=== PATIENT | male | born 1945 | race Caucasian/White ===

== ENCOUNTER 2017-03-23 20:35 | Inpatient (IN) | payer MEDICARE, OTHER ==
[2017-03-23] MEDS ORDERED: SODIUM CHLORIDE 0.9% 1,000 ML IV STA (20:41)
[2017-03-23] MEDS ORDERED: ACETAMINOPHEN TAB 500 MG TAB PO STA (20:42)
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
[2017-03-23 21:24] LABS: Anisocytosis Slight; Basophils % (A) 0 %; CH 26.2; CHCM 31.4; Eosinophils # (A) 0.3 k/uL (0-0.7); Eosinophils % (A) 4 %; HCT 32.1 % (39.0-53.0); HDW 2.89; HGB 9.9 gm/dL (13.0-17.5); Hypochromasia Slight; Luc # (Auto) 0.13; Luc % (Auto) 2; Lymphocytes # (A) 0.7 k/uL (1.0-4.8); Lymphocytes % (A) 8 %; MCH 25.8 pg (25.0-35.0); MCHC 30.8 g/dL (31.0-37.0); MCV 83.7 fL (80.0-100.0); Mean Platelet Volume 7.7; Monocytes # (A) 0.5 k/uL (0-1.0); Monocytes % (A) 5 %; Neutrophils # (A) 7.2 k/uL (1.3-7.7); Neutrophils % (A) 81 %; RBC 3.83 m/uL (4.30-5.90); WBC 8.8 k/uL (3.8-10.6); WBC (Perox) 8.42
[2017-03-23 21:33] LABS: Partial Thromboplastin Time 32.2 sec (22.0-30.0)
[2017-03-23 21:35] LABS: INR 1.4 (<1.2); Prothrombin Time 13.9 sec (9.0-12.0)
[2017-03-23 21:36] LABS: ALT 29 U/L (21-72); AST 13 U/L (17-59); Alkaline Phosphatase 74 U/L (38-126); Anion Gap 9 mmol/L; Blood Urea Nitrogen 11 mg/dL (9-20); Calcium 10.7 mg/dL (8.4-10.2); Carbon Dioxide 29 mmol/L (22-30); Chloride 98 mmol/L (98-107); Glucose 135 mg/dL (74-99); Magnesium 1.1 mg/dL (1.6-2.3); Non-African American GFR(MDRD) >60 (>60 ml/min/1.73 sqM); Potassium 3.8 mmol/L (3.5-5.1); Sodium 136 mmol/L (137-145); Total Bilirubin 0.3 mg/dL (0.2-1.3); Total Protein 6.1 g/dL (6.3-8.2)
[2017-03-23 21:43] LABS: Creatine Kinase <20 U/L (55-170)
[2017-03-23 21:57] LABS: Creatine Kinase MB 0.4 ng/mL (0.0-2.4); Troponin I <0.012 ng/mL (0.000-0.034)
--- NOTE | 2017-03-23 21:57 | CT ---
EXAMINATION TYPE: CT brain wo con DATE OF EXAM: 03/23/2017 HISTORY: Patient poor historian. Patient weak, poor balance, and recent fall. CT DLP: 1150 mGycm. Automated Exposure Control for Dose Reduction was Utilized. TECHNIQUE: CT scan of the head is performed without contrast. COMPARISON: None. FINDINGS: There is no acute intracranial hemorrhage or midline shift identified. Right frontal jenny hole is felt present near axial image 40 versus less likely enchondroma. Correlate clinically. There is diffuse ventricular and sulcal prominence consistent with diffuse age-related cerebral atrophy. There is low-attenuation in the periventricular white matter consistent with chronic small vessel isc hemic change. The globes are intact and the visualized sinuses are clear. IMPRESSION: No acute intracranial hemorrhage or midline shift. There is mild to moderate diffuse ag e-related cerebral atrophy and chronic small vessel ischemic change noted.
--- NOTE | 2017-03-23 22:03 | XR ---
EXAMINATION TYPE: XR chest 2V DATE OF EXAM: 03/23/2017 COMPARISON: Outside CT thorax December 11, 2016 HISTORY: Weakness and increased falls TECHNIQUE: Frontal and lateral views of the chest are obtained. FINDINGS: Sternal wires are redemonstrated. There is background chronic emphysematous change. There is persistent moderate to large left-sided pleural pleural effusion or fluid collection. Some aerated lung left lung apex remains present. There is stable right subclavian Mediport catheter. There is pe rsistent mild cardiomegaly though left heart border is silhouetted similar to prior. No mediastinal s hift is seen. Osseous structures are intact. IMPRESSION: Overall stable findings, chronic emphysematous change and mild cardiomegaly with persist ent moderate to large left-sided pleural effusion or fluid collection and associated left lung atelec tasis and/or infiltrate.
[2017-03-23 22:29] LABS: Appearance,Urine Clear (Clear); Bilirubin,Urine Negative (Negative); Glucose,Urine (UA) Negative (Negative); Ketones,Urine Negative (Negative); Leukocyte Esterase,Urine Negative (Negative); Mucus,Urine Occasional /hpf; Nitrite,Urine Negative (Negative); PH, Urine 5.5 (5.0-8.0); Particle Count 3267; Protein,Urine Trace (Negative); RBC,Urine 3 /hpf (0-5); UA Billing (MACRO vs. MICRO) MICRO; Urobilinogen,Urine <2.0 mg/dL (<2.0); WBC,Urine 1 /hpf (0-5)
[2017-03-23] MEDS: MAGNESIUM SULFATE-D5W PMX 1 GM in DEXTROSE/WATER 1 100ML.BAG IVPB SCH (22:43)
[2017-03-23] MEDS ORDERED: LEVOFLOXACIN 750MG-D5W PMX 750 MG in DEXTROSE/WATER 1 150ML.BAG IVPB STA (22:43)
[2017-03-23] MEDS ORDERED: SODIUM CHLORIDE 0.9% 1,000 ML IV ONE (22:43)
[2017-03-24] MEDS: MAGNESIUM SULFATE-D5W PMX 1 GM in DEXTROSE/WATER 1 100ML.BAG IVPB SCH (03:31)
[2017-03-24 07:13] LABS: Glucose,Whole Blood 138 mg/dL (75-99)
[2017-03-24] MEDS: CARVEDILOL 3.125 MG TAB PO SCH (08:23)
[2017-03-24] MEDS ORDERED: PROCHLORPERAZINE 10 MG TAB PO PRN (09:23)
[2017-03-24] MEDS ORDERED: LIDOCAINE-PRILOCAINE 2.5-2.5% CREAM 5 GM TUBE TOPICAL PRN (09:23)
[2017-03-24] MEDS: oxyCODONE-APAP 10-325MG 1 EACH TAB PO PRN ×2 (09:36→18:01)
[2017-03-24 11:03] VITALS: BMI 36.7
[2017-03-24 11:48] LABS: Glucose,Whole Blood 131 mg/dL (75-99)
[2017-03-24] MEDS: CHOLECALCIFEROL 1,000 UNIT TAB PO SCH ×2 (12:13→21:25)
[2017-03-24] MEDS: LEVOTHYROXINE 50 MCG TAB PO SCH (12:14)
[2017-03-24] MEDS: ASPIRIN 81 MG PO SCH (12:15)
[2017-03-24] MEDS: MULTIVITAMINS, THERA 1 EACH TAB PO SCH (12:15)
[2017-03-24] MEDS ORDERED: LACTULOSE 20 GM/30 ML CUP PO ONE (12:21)
[2017-03-24] MEDS: INSULIN LISPRO (humaLOG) 300 UNIT/3 ML VIAL SQ SCH ×3 (12:25→21:26)
[2017-03-24 12:37] LABS: Anisocytosis Slight; Basophils % (A) 0 %; CH 25.9; CHCM 30.7; Eosinophils # (A) 0.2 k/uL (0-0.7); Eosinophils % (A) 3 %; HCT 28.8 % (39.0-53.0); HDW 2.89; Hypochromasia Moderate; Luc # (Auto) 0.14; Luc % (Auto) 2; Lymphocytes # (A) 0.8 k/uL (1.0-4.8); Lymphocytes % (A) 10 %; MCH 26.3 pg (25.0-35.0); MCHC 31.2 g/dL (31.0-37.0); MCV 84.6 fL (80.0-100.0); Mean Platelet Volume 8.1; Monocytes # (A) 0.5 k/uL (0-1.0); Monocytes % (A) 6 %; Neutrophils # (A) 5.9 k/uL (1.3-7.7); Neutrophils % (A) 79 %; RDW 16.7 % (11.5-15.5); WBC 7.5 k/uL (3.8-10.6); WBC (Perox) 7.54
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
[2017-03-24 12:48] LABS: ALT 22 U/L (21-72); AST 12 U/L (17-59); Alkaline Phosphatase 61 U/L (38-126); Anion Gap 6 mmol/L; Blood Urea Nitrogen 7 mg/dL (9-20); Calcium 10.1 mg/dL (8.4-10.2); Carbon Dioxide 31 mmol/L (22-30); Chloride 99 mmol/L (98-107); Glucose 112 mg/dL (74-99); Non-African American GFR(MDRD) >60 (>60 ml/min/1.73 sqM); Potassium 3.7 mmol/L (3.5-5.1); Sodium 136 mmol/L (137-145); Total Bilirubin 0.3 mg/dL (0.2-1.3); Total Protein 5.7 g/dL (6.3-8.2)
[2017-03-24] MEDS: PREGABALIN 75 MG CAP PO SCH ×3 (13:16→21:30)
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
[2017-03-24 17:35] LABS: Glucose,Whole Blood 134 mg/dL (75-99)
[2017-03-24] MEDS ORDERED: RX INFO: IV CONTRAST WAS GIVEN 1 EACH MISC MISCELLANE PRN (17:44)
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
[2017-03-24] MEDS: IOHEXOL 350 MG/ML 25 ML BOTTLE (ORAL USE) PO PRN ×2 (18:11→19:13)
--- NOTE | 2017-03-24 18:43 | US ---
EXAMINATION TYPE: US chest DATE OF EXAM: 03/24/2017 COMPARISON: xray CLINICAL HISTORY: Left pleural effusion. TECHNIQUE: Department of peripheral. EXAM MEASUREMENTS: Left Pleural Effusion fluid pocket: 7.5 cm Left skin to fluid thickness: 5.0 cm Left side marked for possible thoracentesis outside the dept. Pulmonologists are able to review the images in the patient?s EMR. IMPRESSION: LEFT THORACIC ULTRASOUND FOR PLEURAL EFFUSION EVALUATION.
[2017-03-24 20:36] LABS: Glucose,Whole Blood 134 mg/dL (75-99)
[2017-03-24] MEDS ORDERED: NON-FORMULARY DRUG (Omega-3 Fatty Acids/Fish Oil [Fish Oil 1,000 Mg Softgel] 1 CAP) PO SCH (21:00)
[2017-03-24] MEDS ORDERED: HEPARIN SODIUM,PORCINE 5,000 UNIT/ML 1 ML VIAL SQ SCH (21:00)
[2017-03-24] MEDS ORDERED: metFORMIN 500 MG TAB PO SCH (21:00)
[2017-03-24] MEDS: ATORVASTATIN 20 MG TAB PO SCH (21:25)
[2017-03-24] MEDS: AMITRIPTYLINE HCL 50 MG TAB PO SCH (21:25)
[2017-03-24] MEDS: ZINC OXIDE 20% OINT 28.4 GM TUBE TOPICAL SCH (21:26)
[2017-03-24] MEDS: DOCUSATE 100 MG CAP PO SCH (21:26)
--- NOTE | 2017-03-24 21:57 | CT ---
EXAMINATION TYPE: CT ChestAbdPelvis w con DATE OF EXAM: 03/24/2017 HISTORY: follow up lung cancer CT DLP: 2640 mGycm. Automated exposure control for dose reduction was used. CONTRAST: CT scan of the chest, abdomen and pelvis is performed with Oral Contrast and with IV Contra st, patient injected with 100 mL of Omnipaque 300. COMPARISON: NONE CHEST FINDINGS: The large left pleural effusion occupies two-thirds of the left hemithorax and is ass ociated with atelectasis of all left lung parenchyma, with the sole exception being the left apical l skylar parenchyma anteriorly. The atelectasis is rounded centrally in the perihilar position, and is ass ociated with cut off of the left lower lobe bronchus. The airway is shifted right of midline but is widely patent - with the exception of the left lowe r lobe bronchus which shows abrupt cut-off. The inflated right lung shows a dependent interstitial pattern consistent with mild interstitial phase pulmonary edema. There is no evidence of pneumonia. There are two rounded subcentimeter pulmona ry nodular opacities. The pulmonary arterial tree is widely patent without evidence of pulmonary emboli. There are mult ifocal superior and middle mediastinal 1 cm lymph nodes. Prominent left and right coronary calcificat ions are noted. Thoracic aorta shows nonaneurysmal atherosclerotic changes. Pericardial space is nega tive. Right pleural space is negative. Skeletal structures: There is a prominent T10 left anterior vertebral body osteolytic lesion and a subtle T9 left anterior vertebral body osteolytic lesion. ABDOMEN-PELVIS FINDINGS: There is no bowel, urinary tract, biliary, or venous obstruction. No focal v isceral lesions to suggest metastatic disease. No abdominal or pelvic adenopathy. Nonaneurysmal gener alized atherosclerotic calcifications are appreciated. Skeletal structures: No definite osseous metastatic deposits. IMPRESSION: TUMOR BURDEN APPEARS LIMITED TO THE CHEST, DETAILED.
[2017-03-24] MEDS ORDERED: LEVOFLOXACIN 750MG-D5W PMX 750 MG in DEXTROSE/WATER 1 150ML.BAG IVPB SCH (22:00)
[2017-03-24] MEDS: LEVOFLOXACIN 750 MG TAB PO SCH (22:33)
[2017-03-25] MEDS: LEVOTHYROXINE 50 MCG TAB PO SCH (06:15)
[2017-03-25 06:34] LABS: Anisocytosis Slight; Basophils % (A) 0 %; CH 27.1; CHCM 32.2; Eosinophils # (A) 0.3 k/uL (0-0.7); Eosinophils % (A) 5 %; HCT 29.1 % (39.0-53.0); HDW 2.88; HGB 9.1 gm/dL (13.0-17.5); Hypochromasia Slight; Luc # (Auto) 0.09; Luc % (Auto) 1; Lymphocytes # (A) 0.7 k/uL (1.0-4.8); Lymphocytes % (A) 10 %; MCH 26.5 pg (25.0-35.0); MCHC 31.3 g/dL (31.0-37.0); MCV 84.5 fL (80.0-100.0); Mean Platelet Volume 8.5; Monocytes # (A) 0.5 k/uL (0-1.0); Monocytes % (A) 7 %; Neutrophils # (A) 5.4 k/uL (1.3-7.7); Neutrophils % (A) 77 %; RBC 3.45 m/uL (4.30-5.90); RDW 18.5 % (11.5-15.5); WBC (Perox) 7.64
[2017-03-25 06:39] LABS: INR 1.5 (<1.2); Prothrombin Time 14.3 sec (9.0-12.0)
[2017-03-25 06:58] LABS: ALT 25 U/L (21-72); AST 13 U/L (17-59); Alkaline Phosphatase 64 U/L (38-126); Anion Gap 6 mmol/L; Blood Urea Nitrogen 3 mg/dL (9-20); Calcium 10.4 mg/dL (8.4-10.2); Carbon Dioxide 31 mmol/L (22-30); Chloride 100 mmol/L (98-107); Glucose 103 mg/dL (74-99); Magnesium 1.3 mg/dL (1.6-2.3); Non-African American GFR(MDRD) >60 (>60 ml/min/1.73 sqM); Potassium 3.5 mmol/L (3.5-5.1); Sodium 137 mmol/L (137-145); Total Bilirubin 0.3 mg/dL (0.2-1.3); Total Protein 5.8 g/dL (6.3-8.2)
[2017-03-25 07:21] LABS: Glucose,Whole Blood 117 mg/dL (75-99)
[2017-03-25] MEDS: INSULIN LISPRO (humaLOG) 300 UNIT/3 ML VIAL SQ SCH ×4 (08:35→20:56)
[2017-03-25] MEDS: oxyCODONE-APAP 10-325MG 1 EACH TAB PO PRN ×3 (08:39→19:36)
[2017-03-25] MEDS: ASPIRIN 81 MG PO SCH (08:40)
[2017-03-25] MEDS: CARVEDILOL 3.125 MG TAB PO SCH (08:40)
[2017-03-25] MEDS: CHOLECALCIFEROL 1,000 UNIT TAB PO SCH ×2 (08:40→21:02)
[2017-03-25] MEDS: ZINC OXIDE 20% OINT 28.4 GM TUBE TOPICAL SCH ×2 (08:41→21:03)
[2017-03-25] MEDS: FAMOTIDINE 20 MG TAB PO SCH (08:41)
[2017-03-25] MEDS: DOCUSATE 100 MG CAP PO SCH ×2 (08:41→21:02)
[2017-03-25] MEDS: PREGABALIN 75 MG CAP PO SCH ×3 (08:54→21:02)
[2017-03-25] MEDS ORDERED: POLYETHYLENE GLYCOL 3350 17 GM POWD.PACK PO STA (09:25)
[2017-03-25] MEDS: MAGNESIUM SULFATE-D5W PMX 1 GM in DEXTROSE/WATER 1 100ML.BAG IVPB SCH ×2 (10:33→12:32)
[2017-03-25 11:05] LABS: Glucose,Whole Blood 150 mg/dL (75-99)
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
--- NOTE | 2017-03-25 12:30 | P.PN ---
Subjective Progress Note Date: 03/25/17 This is a 71-year-old male, patient of Dr. Gallagher. He has a known past medical history of stage IV lung cancer that was diagnosed 2 years ago. He is under undergone chemotherapy and he follows up with Dr. Medina in the office. Patient was brought into the emergency room by EMS because he has been getting weaker on having multiple falls over the last few weeks. He is also been more confused. Most of history was obtained from the . Patient has a known past medical history of myocardial infarction coronary artery disease with previous cardiac stents and CABG, also history of diabetes mellitus, GERD and former smoking history. Oncology has been consulted. Computed tomography scan of brain showed no acute intracranial hemorrhage or midline shift. There is mild to moderate diffuse age-related cerebral atrophy and chronic small vessel ischemic changes noted. chest x-ray shows overall stable findings with chronic emphysematous change and mild cardiomegaly with persistent moderate to large left-sided pleural effusion or fluid collection and associated left lung atelectasis and/or infiltrate. Patient did have a low-grade temp of 100.9 on admission and he does admit to having a mild cough that is productive at times. He was started on Levaquin in the emergency room. EKG had shown sinus tachycardia with PVCs and a right bundle branch block. Heart rate had been 104. He also had hypomagnesemia with magnesium level 1.1. Patient received magnesium supplement in the emergency room. Repeat magnesium level pending. Patient denies any chest pain or shortness of breath. Denies any nausea or vomiting. Denies any burning with urination. He reports that it's been multiple date days since his last bowel movement. He denies any abdominal pain. But admits to some diffuse abdominal discomfort. 03/25/2017 patient lying in bed comfortably. Appears more tired today. at bedside. Reports that patient did have episode of confusion yesterday with may be some hallucinating. Patient at that time had his oxygen off. He also has been receiving the Percocets. The final patch was just recently removed due to his confusion on presentation. Patient denies any chest pain or shortness of breath denies any nausea or vomiting. Reports still having constipation. Denies any burning with urination. Oncology has ordered the MiraLAX. Also per patient's Dr. Ro had told the to not proceed with any thoracentesis or have a Pleurx catheter placed due to risk of infection. Patient's pleural effusion is chronic and has had no changes. And he has not required any thoracentesis previously. Objective - Vital Signs Vital signs: Vital Signs Temp 98 F 03/25/17 07:00 Pulse 98 03/25/17 07:00 Resp 20 03/25/17 07:00 BP 152/71 03/25/17 07:00 Pulse Ox 96 03/24/17 21:35 Intake & Output 03/24/17 03/25/17 03/25/17 18:59 06:59 18:59 Intake Total 500 Output Total 600 Balance -100 Weight 140.614 kg Intake: Oral 500 Output: Urine 600 Other: Voiding Method Urinal Urinal # Voids 2 - Exam Head normocephalic Neck supple Lungs clear to auscultation bilaterally no wheezing or crackles Heart regular rate and rhythm S1-S2, no rub or gallop Abdomen is soft nontender nondistended positive bowel sounds no hepatosplenomegaly Extremities no edema Neuro alert and orientated to 2. Disorientated to place stated that he was in [place]. - Labs CBC & Chem 7: 03/25/17 06:10 03/25/17 06:10 Labs: Abnormal Lab Results - Last 24 Hours (Table) 03/24/17 03/24/17 03/24/17 Range/Units 12:20 12:20 12:20 RBC 3.40 L (4.30-5.90) m/uL Hgb 9.0 L (13.0-17.5) gm/dL Hct 28.8 L (39.0-53.0) % RDW 16.7 H (11.5-15.5) % Lymphocytes # 0.8 L (1.0-4.8) k/uL PT (9.0-12.0) sec INR (<1.2) Sodium 136 L (137-145) mmol/L Carbon Dioxide 31 H (22-30) mmol/L BUN 7 L (9-20) mg/dL Creatinine 0.46 L (0.66-1.25) mg/dL Glucose 112 H (74-99) mg/dL POC Glucose (mg/dL) (75-99) mg/dL Calcium (8.4-10.2) mg/dL Magnesium 1.3 L (1.6-2.3) mg/dL AST 12 L (17-59) U/L Total Protein 5.7 L (6.3-8.2) g/dL Albumin 2.5 L (3.5-5.0) g/dL 03/24/17 03/24/17 03/25/17 Range/Units 17:34 20:22 06:10 RBC 3.45 L (4.30-5.90) m/uL Hgb 9.1 L (13.0-17.5) gm/dL Hct 29.1 L (39.0-53.0) % RDW 18.5 H (11.5-15.5) % Lymphocytes # 0.7 L (1.0-4.8) k/uL PT (9.0-12.0) sec INR (<1.2) Sodium (137-145) mmol/L Carbon Dioxide (22-30) mmol/L BUN (9-20) mg/dL Creatinine (0.66-1.25) mg/dL Glucose (74-99) mg/dL POC Glucose (mg/dL) 134 H 134 H (75-99) mg/dL Calcium (8.4-10.2) mg/dL Magnesium (1.6-2.3) mg/dL AST (17-59) U/L Total Protein (6.3-8.2) g/dL Albumin (3.5-5.0) g/dL 03/25/17 03/25/17 03/25/17 Range/Units 06:10 06:10 06:53 RBC (4.30-5.90) m/uL Hgb (13.0-17.5) gm/dL Hct (39.0-53.0) % RDW (11.5-15.5) % Lymphocytes # (1.0-4.8) k/uL PT 14.3 H (9.0-12.0) sec INR 1.5 H (<1.2) Sodium (137-145) mmol/L Carbon Dioxide 31 H (22-30) mmol/L BUN 3 L (9-20) mg/dL Creatinine 0.45 L (0.66-1.25) mg/dL Glucose 103 H (74-99) mg/dL POC Glucose (mg/dL) 117 H (75-99) mg/dL Calcium 10.4 H (8.4-10.2) mg/dL Magnesium 1.3 L (1.6-2.3) mg/dL AST 13 L (17-59) U/L Total Protein 5.8 L (6.3-8.2) g/dL Albumin 2.6 L (3.5-5.0) g/dL 03/25/17 Range/Units 10:58 RBC (4.30-5.90) m/uL Hgb (13.0-17.5) gm/dL Hct (39.0-53.0) % RDW (11.5-15.5) % Lymphocytes # (1.0-4.8) k/uL PT (9.0-12.0) sec INR (<1.2) Sodium (137-145) mmol/L Carbon Dioxide (22-30) mmol/L BUN (9-20) mg/dL Creatinine (0.66-1.25) mg/dL Glucose (74-99) mg/dL POC Glucose (mg/dL) 150 H (75-99) mg/dL Calcium (8.4-10.2) mg/dL Magnesium (1.6-2.3) mg/dL AST (17-59) U/L Total Protein (6.3-8.2) g/dL Albumin (3.5-5.0) g/dL Microbiology - Last 24 Hours (Table) 03/23/17 21:00 Blood Culture - Preliminary Blood No Growth after 24 hours Assessment and Plan Plan: 1. Generalized weakness with multiple falls and altered mental status changes: Computed tomography scan of the brain showing no acute changes. Oncology has been consulted. Need to rule out metastatic disease. Need to rule out Infectious processes. Blood culture has been ordered. Urinalysis is negative. Possible infiltrate noted on chest x-ray. Patient started on Levaquin. Magnesium is also low and may be contributing to some of the weakness and mental status changes. Fentanyl patch discontinued as well may be trending to his mental status changes. awaiting MRI of the brain.computed tomography scan of the chest abdomen and pelvis shows tumor burden appears limited chest. 2. Hypomagnesemia. Patient receiving magnesium supplement. Repeat labs today. Replace if needed 3. Possible infiltrates in the left lung noted on x-ray. Patient has been placed on Levaquin 4. Persistent moderate to large left-sided pleural effusion noted on chest x- ray. these are chronic findings. Per patient's , Dr. Ro is recommending no thoracentesis or pleurx catheter due to risk of infection 5. Stage IV lung cancer diagnosed 2 years ago has received chemotherapy 6. History of coronary artery disease and myocardial infarction with previous coronary artery bypass grafting 7. Diabetes mellitus type 2: Add sliding scale coverage. Resume patient's metformin 8. Former smoker history 9. Coagulopathy with an INR of 1.4 likely related to his cancer. Repeat PT/ INR in a.m. I performed an examination of the patient and discussed their management with the physician Paper Roll Machine Operator. I have reviewed the Physician Paper Roll Machine Operator's notes and agree with the documented findings and plan of care
[2017-03-25] MEDS: MULTIVITAMINS, THERA 1 EACH TAB PO SCH (12:34)
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
--- NOTE | 2017-03-25 14:54 | MR ---
EXAMINATION TYPE: MR brain wo/w con DATE OF EXAM: 03/25/2017 COMPARISON: CT brain 03/23/2017 HISTORY: Loss of Balance, Headaches TECHNIQUE: Multiplanar, multisequence images of the brain and brainstem is performed without and with IV contras t, utilizing 12 mL intravenous Gadavist . FINDINGS: Diffusion weighted images demonstrate no evidence of a recent infarct or other diffusion ab normality. There is a faint periventricular areas of abnormal signal on FLAIR are nonspecific but li aba in the bases remote microvascular ischemia. No midline shift or mass effect. Changes of chronic sinusitis noted. Craniocervical junction maintain ed. Sella turcica has a normal appearance. There is a fluid density adjacent to the lateral margin the right temporal lobe measuring 2.9 x 0.7 c m likely related to a small arachnoid cyst. Tiny area of abnormal signal in the chaya. No enhancing mass. IMPRESSION: 1. Probable small arachnoid cyst along the right lateral temporal lobe. 2. Minimal nonspecific white matter changes likely in the bases remote microvascular ischemia. 3. Probable remote tiny pontine infarct.
--- NOTE | 2017-03-25 17:20 | P.PN ---
Subjective Progress Note Date: 03/25/17 Principal diagnosis: weakness, squamous cell NSCLC Pt seen today in follow up, he is drowsy after having a percocet but he has only required 2 doses in the last 12 hours, he states he feels better today the yesterday, denies fever, nausea, cough, palpitations, he has not had a BM in 4- 5 days, denies abd pain or cramping. Objective - Vital Signs Vital signs: Vital Signs Temp 97.3 F L 03/25/17 14:16 Pulse 84 03/25/17 14:16 Resp 18 03/25/17 14:16 BP 135/61 03/25/17 14:16 Pulse Ox 98 03/25/17 14:16 Intake & Output 03/24/17 03/25/17 03/25/17 18:59 06:59 18:59 Intake Total 500 Output Total 600 400 Balance -100 -400 Weight 140.614 kg Intake: Oral 500 Output: Urine 600 400 Other: Voiding Method Urinal Urinal # Voids 2 2 - Constitutional Constitutional Comment(s): falling asleep during conversation but oriented and answering questions appropriately General appearance: Present: no acute distress, obese - Respiratory Respiratory: bilateral: CTA - Cardiovascular Rhythm: regular Heart sounds: normal: S1, S2 - Peripheral edema leg Peripheral Edema: bilateral: 1+ - Gastrointestinal General gastrointestinal: Present: normal bowel sounds, soft - Integumentary Integumentary Comment(s): better color today then yesterday - Neurologic Neurologic: Present: CNII-XII intact - Musculoskeletal Musculoskeletal: Present: generalized weakness - Labs CBC & Chem 7: 03/25/17 06:10 03/25/17 06:10 Labs: Abnormal Lab Results - Last 24 Hours (Table) 03/24/17 03/24/17 03/25/17 Range/Units 17:34 20:22 06:10 RBC 3.45 L (4.30-5.90) m/uL Hgb 9.1 L (13.0-17.5) gm/dL Hct 29.1 L (39.0-53.0) % RDW 18.5 H (11.5-15.5) % Lymphocytes # 0.7 L (1.0-4.8) k/uL PT (9.0-12.0) sec INR (<1.2) Carbon Dioxide (22-30) mmol/L BUN (9-20) mg/dL Creatinine (0.66-1.25) mg/dL Glucose (74-99) mg/dL POC Glucose (mg/dL) 134 H 134 H (75-99) mg/dL Calcium (8.4-10.2) mg/dL Magnesium (1.6-2.3) mg/dL AST (17-59) U/L Total Protein (6.3-8.2) g/dL Albumin (3.5-5.0) g/dL 03/25/17 03/25/17 03/25/17 Range/Units 06:10 06:10 06:53 RBC (4.30-5.90) m/uL Hgb (13.0-17.5) gm/dL Hct (39.0-53.0) % RDW (11.5-15.5) % Lymphocytes # (1.0-4.8) k/uL PT 14.3 H (9.0-12.0) sec INR 1.5 H (<1.2) Carbon Dioxide 31 H (22-30) mmol/L BUN 3 L (9-20) mg/dL Creatinine 0.45 L (0.66-1.25) mg/dL Glucose 103 H (74-99) mg/dL POC Glucose (mg/dL) 117 H (75-99) mg/dL Calcium 10.4 H (8.4-10.2) mg/dL Magnesium 1.3 L (1.6-2.3) mg/dL AST 13 L (17-59) U/L Total Protein 5.8 L (6.3-8.2) g/dL Albumin 2.6 L (3.5-5.0) g/dL 03/25/17 Range/Units 10:58 RBC (4.30-5.90) m/uL Hgb (13.0-17.5) gm/dL Hct (39.0-53.0) % RDW (11.5-15.5) % Lymphocytes # (1.0-4.8) k/uL PT (9.0-12.0) sec INR (<1.2) Carbon Dioxide (22-30) mmol/L BUN (9-20) mg/dL Creatinine (0.66-1.25) mg/dL Glucose (74-99) mg/dL POC Glucose (mg/dL) 150 H (75-99) mg/dL Calcium (8.4-10.2) mg/dL Magnesium (1.6-2.3) mg/dL AST (17-59) U/L Total Protein (6.3-8.2) g/dL Albumin (3.5-5.0) g/dL Microbiology - Last 24 Hours (Table) 03/23/17 21:00 Blood Culture - Preliminary Blood No Growth after 24 hours - Imaging and Cardiology CT scan - abdomen: report reviewed CT scan - chest: report reviewed CT scan - pelvis: report reviewed Assessment and Plan (1) Generalized weakness Narrative/Plan: PT/OT ordered, discussed with pt and importance of participating, may suggest rehab Current Visit: Yes Status: Acute Priority: High Code(s): R53.1 - WEAKNESS SNOMED Code(s): 08375661 (2) Hypomagnesemia Narrative/Plan: Pt being supplemented Current Visit: Yes Status: Acute Priority: High Code(s): E83.42 - HYPOMAGNESEMIA SNOMED Code(s): 234996101 (3) Non-small cell lung cancer (NSCLC) Narrative/Plan: CT CAP results reviewed with pt and . From the report it does not appear that pt has disease progression, CD from [place] has been requested and we will ask Radiology to please review images and report their findings. MRI brain is being done today. Will f/u in AM. Current Visit: Yes Status: Chronic Priority: High Code(s): C34.90 - MALIGNANT NEOPLASM OF UNSP PART OF UNSP BRONCHUS OR LUNG SNOMED Code(s): 403711228 (4) Constipation Narrative/Plan: Likely due to narcotics. Cont stool softener BID, Miralax ordered, close monitoring of I&O. Current Visit: Yes Status: Acute Priority: High Code(s): K59.00 - CONSTIPATION, UNSPECIFIED SNOMED Code(s): 30521249 (5) Cancer related pain Narrative/Plan: Pain from bone mets, pt has had some radiation to spine in past. Fentanyl was discontinued on admit due to mental status, pt seems to have decent control over pain on percocet, cont current pain meds as ordered. Current Visit: Yes Status: Chronic Priority: Medium Code(s): G89.3 - NEOPLASM RELATED PAIN (ACUTE) (CHRONIC) SNOMED Code(s): 357134899 Plan: If pt disease is stable he will f/u with Dr. Ro and likely resume immunotherapy in the next week or so based on his physical recovery. If pt has progressive disease we will discuss with pt and and give recommendations at that time.
[2017-03-25 17:27] LABS: Glucose,Whole Blood 125 mg/dL (75-99)
[2017-03-25 20:39] LABS: Glucose,Whole Blood 117 mg/dL (75-99)
[2017-03-25] MEDS: AMITRIPTYLINE HCL 50 MG TAB PO SCH (20:58)
[2017-03-25] MEDS: ATORVASTATIN 20 MG TAB PO SCH (21:02)
[2017-03-25] MEDS: POLYETHYLENE GLYCOL 3350 17 GM POWD.PACK PO SCH (21:03)
[2017-03-25] MEDS: LEVOFLOXACIN 750 MG TAB PO SCH (21:03)
[2017-03-26 05:52] LABS: Anisocytosis Slight; Basophils % (A) 0 %; CH 27.1; CHCM 31.9; Eosinophils # (A) 0.4 k/uL (0-0.7); Eosinophils % (A) 5 %; HCT 28.8 % (39.0-53.0); HDW 2.83; HGB 9.1 gm/dL (13.0-17.5); Hypochromasia Slight; Luc # (Auto) 0.08; Luc % (Auto) 1; Lymphocytes # (A) 0.7 k/uL (1.0-4.8); Lymphocytes % (A) 10 %; MCH 26.9 pg (25.0-35.0); MCHC 31.5 g/dL (31.0-37.0); MCV 85.2 fL (80.0-100.0); Mean Platelet Volume 8.6; Monocytes # (A) 0.4 k/uL (0-1.0); Monocytes % (A) 6 %; Neutrophils # (A) 5.3 k/uL (1.3-7.7); Neutrophils % (A) 77 %; RBC 3.39 m/uL (4.30-5.90); RDW 18.1 % (11.5-15.5); WBC 6.8 k/uL (3.8-10.6); WBC (Perox) 7.55
[2017-03-26 05:57] LABS: ALT 26 U/L (21-72); AST 13 U/L (17-59); Alkaline Phosphatase 62 U/L (38-126); Anion Gap 7 mmol/L; Blood Urea Nitrogen 6 mg/dL (9-20); Carbon Dioxide 32 mmol/L (22-30); Chloride 99 mmol/L (98-107); Glucose 105 mg/dL (74-99); Magnesium 1.3 mg/dL (1.6-2.3); Non-African American GFR(MDRD) >60 (>60 ml/min/1.73 sqM); Potassium 3.6 mmol/L (3.5-5.1); Sodium 138 mmol/L (137-145); Total Bilirubin 0.2 mg/dL (0.2-1.3); Total Protein 5.8 g/dL (6.3-8.2)
[2017-03-26] MEDS: LEVOTHYROXINE 50 MCG TAB PO SCH (06:20)
[2017-03-26 06:45] LABS: INR 1.4 (<1.2); Prothrombin Time 14.1 sec (9.0-12.0)
[2017-03-26 07:09] LABS: Glucose,Whole Blood 121 mg/dL (75-99)
[2017-03-26] MEDS: INSULIN LISPRO (humaLOG) 300 UNIT/3 ML VIAL SQ SCH ×4 (07:33→21:34)
[2017-03-26] MEDS: oxyCODONE-APAP 10-325MG 1 EACH TAB PO PRN (08:30)
[2017-03-26] MEDS: ASPIRIN 81 MG PO SCH (08:35)
[2017-03-26] MEDS: FAMOTIDINE 20 MG TAB PO SCH (08:35)
[2017-03-26] MEDS: PREGABALIN 75 MG CAP PO SCH ×3 (08:35→21:37)
[2017-03-26] MEDS: CHOLECALCIFEROL 1,000 UNIT TAB PO SCH ×2 (08:35→21:33)
[2017-03-26] MEDS: DOCUSATE 100 MG CAP PO SCH ×2 (08:35→21:34)
[2017-03-26] MEDS: CARVEDILOL 3.125 MG TAB PO SCH (08:35)
[2017-03-26] MEDS: ZINC OXIDE 20% OINT 28.4 GM TUBE TOPICAL SCH ×2 (09:19→21:36)
[2017-03-26 12:00] LABS: Glucose,Whole Blood 131 mg/dL (75-99)
[2017-03-26] MEDS: MULTIVITAMINS, THERA 1 EACH TAB PO SCH (13:09)
--- NOTE | 2017-03-26 13:28 | P.PN ---
Subjective Progress Note Date: 03/26/17 Principal diagnosis: Large left pleural effusion This is a 71-year-old white male with history of stage IV squamous cell lung cancer, this was diagnosed in February of 2015, patient has been under the care of Dr. Ro and he received chemotherapy. Patient is presently on opdivo for advanced non-small cell lung cancer. Patient was brought into the ER by EMS because he has been generally weak, and according to his patient has been falling for the last few weeks. His mental status has also been abnormal patient is showing more confusion episodes, and this was her major concern. Workup in the ER was nondiagnostic, CT of the brain showed no intracranial process. Chest x-ray showed a large left pleural effusion patient was admitted , and this consult was initiated. Patient was also noted to have a low-grade fever with a temp of 100.9 on admission, and he was empirically started on Levaquin. The patient himself is a poor historian, looking back at his old records, patient was here last about 2 years ago when his lung cancer was diagnosed, and this was diagnosed by CT-guided needle biopsy of the left upper lobe mass. According to the patient he was sent to [facility], and he was not felt to be a surgical candidate at the time. His cancer was relatively far advanced. Patient denies any headaches, no blurred vision, no dizziness. Denies any nausea vomiting or abdominal pain. He complains of chronic shortness of breath, chronic weakness, and falling easily. He describes occasional cough, no wheezing, no chest pain, no fever, no chills, no hemoptysis. Although upon presentation to the ER had a low-grade temp of 100.9. In follow-up on the regular medical floor. He is awake and alert in no acute distress. He is more cooperative today as compared to yesterday. His is at the bedside. He denies any shortness of breath while at rest. We had requested a consultation from thoracic services for basement for Pleurx catheter however the patient's stated she did not want any procedures done at this time. He has known about the fluid for some time and had this discussion with Dr. Ro. He is currently maintaining O2 saturations in the low 90s on 4 L/m per nasal cannula. He is been afebrile. Hemodynamically stable. On 03/26/2017 patient is reevaluated on the medical surgical floor. He seems to be stable from pulmonary standpoint, with no specific complaints. He denies shortness of breath, wheezing or chest pain. On examination lung sounds are clear, diminished over the left lower base. No wheezes, no rhonchi auscultated. He remains on oxygen at 1.5 L per nasal cannula with O2 saturations at 98%. His respirations are even and nonlabored. He has been afebrile. Objective - Vital Signs Vital signs: Vital Signs Temp 98.9 F 03/26/17 07:28 Pulse 96 03/26/17 09:37 Resp 18 03/26/17 09:37 BP 138/80 03/26/17 07:28 Pulse Ox 98 03/26/17 07:28 Intake & Output 03/25/17 03/26/17 03/26/17 18:59 06:59 18:59 Intake Total 100 Output Total 800 Balance -800 100 Weight 140.614 kg Intake: Oral 100 Output: Urine 800 Other: Voiding Method Urinal Urinal Urinal # Voids 2 3 2 - Exam Physical Exam: Revealed a 71-year-old white male, obese, slightly pale, in no form of respiratory distress. HEENT: Normocephalic, atraumatic. PERRLA, EOMI, throat is clear. [Neck is supple.] [No neck masses.] [No thyromegaly.] [No JVD.] Chest: [Diminished breath sounds and dullness on the left side, no crackles, no rhonchi, no wheezes.] Cardiac Exam: [Normal S1 and S2, no S3 gallop, no murmur.] Abdomen: [Soft, nontender, no megaly, no rebound, no guarding, normal bowel sounds.] Extremities: [No clubbing, no edema, no cyanosis.] Neurological Exam: No focal deficits noted. Patient has had no further episodes of delirium or paranoid ideations Psychiatric: Evidence of paranoid ideations noted or visual hallucinations. Skin: No rashes, no ulcerations. Lymphatics: No lymphadenopathy. Musculoskeletal: Normal range of motion, muscle strength is normal. - Labs CBC & Chem 7: 03/26/17 05:40 03/26/17 05:40 Labs: Abnormal Lab Results - Last 24 Hours (Table) 03/25/17 03/25/17 03/26/17 Range/Units 17:12 20:37 05:40 RBC 3.39 L (4.30-5.90) m/uL Hgb 9.1 L (13.0-17.5) gm/dL Hct 28.8 L (39.0-53.0) % RDW 18.1 H (11.5-15.5) % Lymphocytes # 0.7 L (1.0-4.8) k/uL PT (9.0-12.0) sec INR (<1.2) Carbon Dioxide (22-30) mmol/L BUN (9-20) mg/dL Creatinine (0.66-1.25) mg/dL Glucose (74-99) mg/dL POC Glucose (mg/dL) 125 H 117 H (75-99) mg/dL Magnesium (1.6-2.3) mg/dL AST (17-59) U/L Total Protein (6.3-8.2) g/dL Albumin (3.5-5.0) g/dL 03/26/17 03/26/17 03/26/17 Range/Units 05:40 05:40 07:03 RBC (4.30-5.90) m/uL Hgb (13.0-17.5) gm/dL Hct (39.0-53.0) % RDW (11.5-15.5) % Lymphocytes # (1.0-4.8) k/uL PT 14.1 H (9.0-12.0) sec INR 1.4 H (<1.2) Carbon Dioxide 32 H (22-30) mmol/L BUN 6 L (9-20) mg/dL Creatinine 0.50 L (0.66-1.25) mg/dL Glucose 105 H (74-99) mg/dL POC Glucose (mg/dL) 121 H (75-99) mg/dL Magnesium 1.3 L (1.6-2.3) mg/dL AST 13 L (17-59) U/L Total Protein 5.8 L (6.3-8.2) g/dL Albumin 2.5 L (3.5-5.0) g/dL 03/26/17 Range/Units 11:41 RBC (4.30-5.90) m/uL Hgb (13.0-17.5) gm/dL Hct (39.0-53.0) % RDW (11.5-15.5) % Lymphocytes # (1.0-4.8) k/uL PT (9.0-12.0) sec INR (<1.2) Carbon Dioxide (22-30) mmol/L BUN (9-20) mg/dL Creatinine (0.66-1.25) mg/dL Glucose (74-99) mg/dL POC Glucose (mg/dL) 131 H (75-99) mg/dL Magnesium (1.6-2.3) mg/dL AST (17-59) U/L Total Protein (6.3-8.2) g/dL Albumin (3.5-5.0) g/dL Microbiology - Last 24 Hours (Table) 03/23/17 21:00 Blood Culture - Preliminary Blood No Growth after 48 hours Assessment and Plan Plan: Assessment: 1 generalized weakness and altered mental status most likely secondary to advanced underlying squamous cell carcinoma with metastasis. 2 left pleural effusion, large, felt to be malignant unless proven otherwise. 3 stage IV squamous cell carcinoma of the lungs, status post chemotherapy 2 years ago, presently on opdivo. 4 history of coronary artery disease and previous MT previous CABG. 5 intermittent episodes of paranoid ideations and possibly visual hallucinations , patient will need a psychiatric consultation. 6 chronic anemia of chronic disease. Plan: The patient was seen and evaluated by Dr. Pinto. Patient and the family declined the placement of the Pleurx catheter for the large left pleural effusion at this time as it was not causing him any significant limitation in his respiratory status. The patient was given the option of getting one down the road should his symptoms of dyspnea worsen. Increase activity as tolerated. We'll continue to follow. I performed a history & physical examination of the patient and discussed their management with my nurse practitioner, Carie Perdomo. I reviewed the nurse practitioner's note and agree with the documented findings and plan of care. Lung sounds are clear with area of dullness over the left lower base. No signs of respiratory distress. I attest the documentation by the nurse practitioner
[2017-03-26] MEDS ORDERED: Magnesium Replacement Protocol 1 EACH MISC MISCELLANE PRN (13:47)
[2017-03-26] MEDS: MAGNESIUM SULFATE-D5W PMX 1 GM in DEXTROSE/WATER 1 100ML.BAG IVPB SCH ×2 (14:09→15:52)
--- NOTE | 2017-03-26 17:06 | P.PN ---
Subjective Progress Note Date: 03/26/17 This is a 71-year-old male, patient of Dr. Gallagher. He has a known past medical history of stage IV lung cancer that was diagnosed 2 years ago. He is under undergone chemotherapy and he follows up with Dr. Medina in the office. Patient was brought into the emergency room by EMS because he has been getting weaker on having multiple falls over the last few weeks. He is also been more confused. Most of history was obtained from the . Patient has a known past medical history of myocardial infarction coronary artery disease with previous cardiac stents and CABG, also history of diabetes mellitus, GERD and former smoking history. Oncology has been consulted. Computed tomography scan of brain showed no acute intracranial hemorrhage or midline shift. There is mild to moderate diffuse age-related cerebral atrophy and chronic small vessel ischemic changes noted. chest x-ray shows overall stable findings with chronic emphysematous change and mild cardiomegaly with persistent moderate to large left-sided pleural effusion or fluid collection and associated left lung atelectasis and/or infiltrate. Patient did have a low-grade temp of 100.9 on admission and he does admit to having a mild cough that is productive at times. He was started on Levaquin in the emergency room. EKG had shown sinus tachycardia with PVCs and a right bundle branch block. Heart rate had been 104. He also had hypomagnesemia with magnesium level 1.1. Patient received magnesium supplement in the emergency room. Repeat magnesium level pending. Patient denies any chest pain or shortness of breath. Denies any nausea or vomiting. Denies any burning with urination. He reports that it's been multiple date days since his last bowel movement. He denies any abdominal pain. But admits to some diffuse abdominal discomfort. 03/25/2017 patient lying in bed comfortably. Appears more tired today. at bedside. Reports that patient did have episode of confusion yesterday with may be some hallucinating. Patient at that time had his oxygen off. He also has been receiving the Percocets. The final patch was just recently removed due to his confusion on presentation. Patient denies any chest pain or shortness of breath denies any nausea or vomiting. Reports still having constipation. Denies any burning with urination. Oncology has ordered the MiraLAX. Also per patient's Dr. Ro had told the to not proceed with any thoracentesis or have a Pleurx catheter placed due to risk of infection. Patient's pleural effusion is chronic and has had no changes. And he has not required any thoracentesis previously. 2016 patient was doing well this morning he was alert responsive in no apparent distress he was lying in bed comfortably is at bedside however in the afternoon he started having significant confusion, he was evaluated today by psychiatry, at this time will check ammonia level, will continue to monitor. MRI of the brain was done and reviewed no evidence of metastatic disease to the brain. Objective - Vital Signs Vital signs: Vital Signs Temp 98.5 F 03/26/17 15:00 Pulse 64 03/26/17 15:00 Resp 16 03/26/17 15:00 BP 131/57 03/26/17 15:00 Pulse Ox 97 03/26/17 15:00 Intake & Output 03/25/17 03/26/17 03/26/17 18:59 06:59 18:59 Intake Total 100 1300 Output Total 800 Balance -236 572 6797 Weight 140.614 kg Intake: Oral 100 1300 Output: Urine 800 Other: Voiding Method Urinal Urinal Urinal # Voids 2 3 4 - Exam In general patient is alert and oriented 3 HEENT head normocephalic and atraumatic Neck is supple no JVD no goiter no lymphadenopathy Chest exam reveals a few scattered crackles bilaterally no wheezing Cardiac exam reveals regular heart sounds S1 and S2 no gallops no murmurs Abdomen is soft nontender no organomegaly with normal bowel sounds Extremity exam reveals no edema no cyanosis or clubbing - Labs CBC & Chem 7: 03/26/17 05:40 03/26/17 05:40 Labs: Abnormal Lab Results - Last 24 Hours (Table) 03/25/17 03/25/17 03/26/17 Range/Units 17:12 20:37 05:40 RBC 3.39 L (4.30-5.90) m/uL Hgb 9.1 L (13.0-17.5) gm/dL Hct 28.8 L (39.0-53.0) % RDW 18.1 H (11.5-15.5) % Lymphocytes # 0.7 L (1.0-4.8) k/uL PT (9.0-12.0) sec INR (<1.2) Carbon Dioxide (22-30) mmol/L BUN (9-20) mg/dL Creatinine (0.66-1.25) mg/dL Glucose (74-99) mg/dL POC Glucose (mg/dL) 125 H 117 H (75-99) mg/dL Magnesium (1.6-2.3) mg/dL AST (17-59) U/L Total Protein (6.3-8.2) g/dL Albumin (3.5-5.0) g/dL 03/26/17 03/26/17 03/26/17 Range/Units 05:40 05:40 07:03 RBC (4.30-5.90) m/uL Hgb (13.0-17.5) gm/dL Hct (39.0-53.0) % RDW (11.5-15.5) % Lymphocytes # (1.0-4.8) k/uL PT 14.1 H (9.0-12.0) sec INR 1.4 H (<1.2) Carbon Dioxide 32 H (22-30) mmol/L BUN 6 L (9-20) mg/dL Creatinine 0.50 L (0.66-1.25) mg/dL Glucose 105 H (74-99) mg/dL POC Glucose (mg/dL) 121 H (75-99) mg/dL Magnesium 1.3 L (1.6-2.3) mg/dL AST 13 L (17-59) U/L Total Protein 5.8 L (6.3-8.2) g/dL Albumin 2.5 L (3.5-5.0) g/dL 03/26/17 Range/Units 11:41 RBC (4.30-5.90) m/uL Hgb (13.0-17.5) gm/dL Hct (39.0-53.0) % RDW (11.5-15.5) % Lymphocytes # (1.0-4.8) k/uL PT (9.0-12.0) sec INR (<1.2) Carbon Dioxide (22-30) mmol/L BUN (9-20) mg/dL Creatinine (0.66-1.25) mg/dL Glucose (74-99) mg/dL POC Glucose (mg/dL) 131 H (75-99) mg/dL Magnesium (1.6-2.3) mg/dL AST (17-59) U/L Total Protein (6.3-8.2) g/dL Albumin (3.5-5.0) g/dL Microbiology - Last 24 Hours (Table) 03/23/17 21:00 Blood Culture - Preliminary Blood No Growth after 48 hours Assessment and Plan Plan: 1. Generalized weakness with multiple falls and altered mental status changes: Computed tomography scan of the brain showing no acute changes. Oncology has been consulted. Need to rule out metastatic disease. Need to rule out Infectious processes. Blood culture has been ordered. Urinalysis is negative. Possible infiltrate noted on chest x-ray. Patient started on Levaquin. Magnesium is also low and may be contributing to some of the weakness and mental status changes. Fentanyl patch discontinued as well may be trending to his mental status changes. MRI of the brain without any evidence of metastatic disease awaiting input from psychiatry, will check ammonia level continue to monitor 2. Hypomagnesemia. Patient receiving magnesium supplement. Repeat labs today. Replace if needed 3. Possible infiltrates in the left lung noted on x-ray. Patient has been placed on Levaquin 4. Persistent moderate to large left-sided pleural effusion noted on chest x- ray. these are chronic findings. Per patient's , Dr. Ro is recommending no thoracentesis or pleurx catheter due to risk of infection 5. Stage IV lung cancer diagnosed 2 years ago has received chemotherapy 6. History of coronary artery disease and myocardial infarction with previous coronary artery bypass grafting 7. Diabetes mellitus type 2: Add sliding scale coverage. Resume patient's metformin 8. Former smoker history 9. Coagulopathy with an INR of 1.4 likely related to his cancer. Repeat PT/ INR in a.m.
[2017-03-26 17:07] LABS: Appearance,Urine Cloudy (Clear); Bacteria,Urine Rare /hpf; Bilirubin,Urine Negative (Negative); Glucose,Urine (UA) Negative (Negative); Ketones,Urine Negative (Negative); Leukocyte Esterase,Urine Negative (Negative); Mucus,Urine Rare /hpf; Nitrite,Urine Negative (Negative); Particle Count 10310; Protein,Urine Negative (Negative); RBC,Urine 1 /hpf (0-5); UA Billing (MACRO vs. MICRO) MICRO; WBC,Urine 1 /hpf (0-5)
[2017-03-26 17:12] LABS: Glucose,Whole Blood 132 mg/dL (75-99)
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
[2017-03-26 20:19] LABS: Glucose,Whole Blood 153 mg/dL (75-99)
[2017-03-26] MEDS: LEVOFLOXACIN 750 MG TAB PO SCH (21:33)
[2017-03-26] MEDS: POLYETHYLENE GLYCOL 3350 17 GM POWD.PACK PO SCH (21:33)
[2017-03-26] MEDS: ATORVASTATIN 20 MG TAB PO SCH (21:34)
[2017-03-26] MEDS: AMITRIPTYLINE HCL 50 MG TAB PO SCH (21:34)
--- NOTE | 2017-03-27 01:22 | P.PN ---
Subjective Progress Note Date: 03/26/17 the patient is more alert. According to his he is not having any confusion today. However he remains quite weak. He has been able to walk from the bed out into the hallway with physical therapy. Objective - Vital Signs Vital signs: Vital Signs Temp 97.8 F 03/26/17 21:38 Pulse 107 H 03/26/17 21:38 Resp 19 03/26/17 21:38 BP 144/64 03/26/17 21:38 Pulse Ox 91 L 03/26/17 21:38 Intake & Output 03/26/17 03/26/17 03/27/17 06:59 18:59 06:59 Intake Total 100 1300 80 Output Total 600 Balance 100 700 80 Intake: IV 80 ns@20 80 Oral 100 1300 Output: Urine 600 Other: Voiding Method Urinal Urinal Toilet Urinal # Voids 3 2 - Constitutional Constitutional Comment(s): Significant generalized weakness General appearance: Present: no acute distress - EENT Eyes: Present: EOMI, PERRLA ENT: Present: hearing grossly normal, normal oropharynx - Respiratory Respiratory: bilateral: CTA - Cardiovascular Rhythm: regular Heart sounds: normal: S1, S2 - Gastrointestinal General gastrointestinal: Present: normal bowel sounds, soft - Integumentary Integumentary: Present: normal - Neurologic Neurologic: Present: CNII-XII intact - Musculoskeletal Musculoskeletal: Present: generalized weakness, strength equal bilaterally - Psychiatric Psychiatric: Present: A&O x's 3, appropriate affect - Labs CBC & Chem 7: 03/26/17 05:40 03/26/17 05:40 Labs: Abnormal Lab Results - Last 24 Hours (Table) 03/26/17 03/26/17 03/26/17 Range/Units 05:40 05:40 05:40 RBC 3.39 L (4.30-5.90) m/uL Hgb 9.1 L (13.0-17.5) gm/dL Hct 28.8 L (39.0-53.0) % RDW 18.1 H (11.5-15.5) % Lymphocytes # 0.7 L (1.0-4.8) k/uL PT 14.1 H (9.0-12.0) sec INR 1.4 H (<1.2) Carbon Dioxide 32 H (22-30) mmol/L BUN 6 L (9-20) mg/dL Creatinine 0.50 L (0.66-1.25) mg/dL Glucose 105 H (74-99) mg/dL POC Glucose (mg/dL) (75-99) mg/dL Magnesium 1.3 L (1.6-2.3) mg/dL AST 13 L (17-59) U/L Total Protein 5.8 L (6.3-8.2) g/dL Albumin 2.5 L (3.5-5.0) g/dL Urine Bacteria (None) /hpf Urine Mucus (None) /hpf Urine Yeast (Budding) (None) /hpf 03/26/17 03/26/17 03/26/17 Range/Units 07:03 11:41 16:50 RBC (4.30-5.90) m/uL Hgb (13.0-17.5) gm/dL Hct (39.0-53.0) % RDW (11.5-15.5) % Lymphocytes # (1.0-4.8) k/uL PT (9.0-12.0) sec INR (<1.2) Carbon Dioxide (22-30) mmol/L BUN (9-20) mg/dL Creatinine (0.66-1.25) mg/dL Glucose (74-99) mg/dL POC Glucose (mg/dL) 121 H 131 H (75-99) mg/dL Magnesium (1.6-2.3) mg/dL AST (17-59) U/L Total Protein (6.3-8.2) g/dL Albumin (3.5-5.0) g/dL Urine Bacteria Rare H (None) /hpf Urine Mucus Rare H (None) /hpf Urine Yeast (Budding) Occasional H (None) /hpf 03/26/17 03/26/17 Range/Units 17:05 20:17 RBC (4.30-5.90) m/uL Hgb (13.0-17.5) gm/dL Hct (39.0-53.0) % RDW (11.5-15.5) % Lymphocytes # (1.0-4.8) k/uL PT (9.0-12.0) sec INR (<1.2) Carbon Dioxide (22-30) mmol/L BUN (9-20) mg/dL Creatinine (0.66-1.25) mg/dL Glucose (74-99) mg/dL POC Glucose (mg/dL) 132 H 153 H (75-99) mg/dL Magnesium (1.6-2.3) mg/dL AST (17-59) U/L Total Protein (6.3-8.2) g/dL Albumin (3.5-5.0) g/dL Urine Bacteria (None) /hpf Urine Mucus (None) /hpf Urine Yeast (Budding) (None) /hpf Microbiology - Last 24 Hours (Table) 03/23/17 21:00 Blood Culture - Preliminary Blood No Growth after 72 hours Assessment and Plan (1) Generalized weakness Narrative/Plan: at this time the cause remains unclear. There is no evidence of infection. MRI of the brain did not show any metastasis. CT scan images from [facility] are pending. These will be submitted to radiology, once available, recheck for evidence of progression compared to His most recent CT scan. If this also shows no progression, I would recommend continued physical therapy. Medication affect is also felt to be quite unlikely as this is not a common side effect with his regimen and in any case, he has been off treatment now for more than a month Current Visit: Yes Status: Acute Priority: High Code(s): R53.1 - WEAKNESS SNOMED Code(s): 83005802
[2017-03-27] MEDS: LEVOTHYROXINE 50 MCG TAB PO SCH (06:31)
[2017-03-27 06:48] LABS: Anisocytosis Slight; Basophils % (A) 0 %; Eosinophils # (A) 0.2 k/uL (0-0.7); Eosinophils % (A) 3 %; HCT 31.8 % (39.0-53.0); HDW 2.94; HGB 9.7 gm/dL (13.0-17.5); Hypochromasia Moderate; Luc # (Auto) 0.11; Luc % (Auto) 1; Lymphocytes # (A) 0.8 k/uL (1.0-4.8); Lymphocytes % (A) 9 %; MCH 25.7 pg (25.0-35.0); MCHC 30.5 g/dL (31.0-37.0); Mean Platelet Volume 8.2; Monocytes # (A) 0.5 k/uL (0-1.0); Monocytes % (A) 6 %; Neutrophils # (A) 6.5 k/uL (1.3-7.7); Neutrophils % (A) 80 %; RBC 3.78 m/uL (4.30-5.90); WBC 8.1 k/uL (3.8-10.6); WBC (Perox) 7.84
[2017-03-27 06:53] LABS: INR 1.5 (<1.2); Prothrombin Time 14.6 sec (9.0-12.0)
[2017-03-27 07:30] LABS: ALT 21 U/L (21-72); AST 14 U/L (17-59); Alkaline Phosphatase 67 U/L (38-126); Anion Gap 7 mmol/L; Blood Urea Nitrogen 7 mg/dL (9-20); Carbon Dioxide 30 mmol/L (22-30); Chloride 100 mmol/L (98-107); Glucose 112 mg/dL (74-99); Magnesium 1.5 mg/dL (1.6-2.3); Non-African American GFR(MDRD) >60 (>60 ml/min/1.73 sqM); Potassium 3.6 mmol/L (3.5-5.1); Sodium 137 mmol/L (137-145); Total Bilirubin 0.4 mg/dL (0.2-1.3); Total Protein 6.1 g/dL (6.3-8.2)
[2017-03-27] MEDS: INSULIN LISPRO (humaLOG) 300 UNIT/3 ML VIAL SQ SCH ×4 (07:42→21:03)
[2017-03-27 07:51] LABS: Glucose,Whole Blood 114 mg/dL (75-99)
[2017-03-27] MEDS: FAMOTIDINE 20 MG TAB PO SCH (07:52)
[2017-03-27] MEDS: ASPIRIN 81 MG PO SCH (07:52)
[2017-03-27] MEDS: CHOLECALCIFEROL 1,000 UNIT TAB PO SCH ×2 (07:52→20:34)
[2017-03-27] MEDS: DOCUSATE 100 MG CAP PO SCH ×2 (07:52→20:33)
[2017-03-27] MEDS: PREGABALIN 75 MG CAP PO SCH ×3 (07:53→21:16)
[2017-03-27] MEDS: ZINC OXIDE 20% OINT 28.4 GM TUBE TOPICAL SCH ×2 (07:53→20:37)
[2017-03-27] MEDS: CARVEDILOL 3.125 MG TAB PO SCH (07:53)
[2017-03-27] MEDS ORDERED: MAGNESIUM SULFATE-D5W PMX 1 GM in DEXTROSE/WATER 1 100ML.BAG IVPB ONE (09:00)
--- NOTE | 2017-03-27 10:33 | P.PN ---
Subjective Progress Note Date: 03/27/17 This is a 71-year-old male, patient of Dr. Gallagher. He has a known past medical history of stage IV lung cancer that was diagnosed 2 years ago. He is under undergone chemotherapy and he follows up with Dr. Medina in the office. Patient was brought into the emergency room by EMS because he has been getting weaker on having multiple falls over the last few weeks. He is also been more confused. Most of history was obtained from the . Patient has a known past medical history of myocardial infarction coronary artery disease with previous cardiac stents and CABG, also history of diabetes mellitus, GERD and former smoking history. Oncology has been consulted. Computed tomography scan of brain showed no acute intracranial hemorrhage or midline shift. There is mild to moderate diffuse age-related cerebral atrophy and chronic small vessel ischemic changes noted. chest x-ray shows overall stable findings with chronic emphysematous change and mild cardiomegaly with persistent moderate to large left-sided pleural effusion or fluid collection and associated left lung atelectasis and/or infiltrate. Patient did have a low-grade temp of 100.9 on admission and he does admit to having a mild cough that is productive at times. He was started on Levaquin in the emergency room. EKG had shown sinus tachycardia with PVCs and a right bundle branch block. Heart rate had been 104. He also had hypomagnesemia with magnesium level 1.1. Patient received magnesium supplement in the emergency room. Repeat magnesium level pending. Patient denies any chest pain or shortness of breath. Denies any nausea or vomiting. Denies any burning with urination. He reports that it's been multiple date days since his last bowel movement. He denies any abdominal pain. But admits to some diffuse abdominal discomfort. 03/25/2017 patient lying in bed comfortably. Appears more tired today. at bedside. Reports that patient did have episode of confusion yesterday with may be some hallucinating. Patient at that time had his oxygen off. He also has been receiving the Percocets. The final patch was just recently removed due to his confusion on presentation. Patient denies any chest pain or shortness of breath denies any nausea or vomiting. Reports still having constipation. Denies any burning with urination. Oncology has ordered the MiraLAX. Also per patient's Dr. Ro had told the to not proceed with any thoracentesis or have a Pleurx catheter placed due to risk of infection. Patient's pleural effusion is chronic and has had no changes. And he has not required any thoracentesis previously. 03/27/2017 patient still having some generalized weakness. However, he reports some improvement. He was able to ambulate to the bathroom with holding onto the IV pole and one person assist. Patient has no confusion this morning. However per nursing staff he did have some confusion in the evening yesterday. Patient was seen by psychiatry. They agree with discontinuing the fentanyl patch. Also recommend discontinuing the Elavil. Patient denies any chest pain or shortness of breath. Denies any nausea or vomiting. Reports having a bowel movement. Denies any burning with urination. Objective - Vital Signs Vital signs: Vital Signs Temp 98 F 03/27/17 07:00 Pulse 98 03/27/17 07:00 Resp 16 03/27/17 07:00 BP 146/86 03/27/17 07:00 Pulse Ox 90 L 03/27/17 07:00 Intake & Output 03/26/17 03/27/17 03/27/17 18:59 06:59 18:59 Intake Total 1300 240 Output Total 600 Balance 700 240 Intake: IV 240 ns@20 240 Oral 1300 Output: Urine 600 Other: Voiding Method Urinal Toilet Urinal # Voids 2 1 - Exam Head normocephalic Neck supple Lungs clear to auscultation bilaterally no wheezing or crackles Heart regular rate and rhythm S1-S2, no rub or gallop Abdomen is soft nontender nondistended positive bowel sounds no hepatosplenomegaly Extremities no edema Neuro alert and orientated to 2. Disorientated to place stated that he was in [place]. - Labs CBC & Chem 7: 03/27/17 06:34 03/27/17 06:34 Labs: Abnormal Lab Results - Last 24 Hours (Table) 03/26/17 03/26/17 03/26/17 Range/Units 11:41 16:50 17:05 RBC (4.30-5.90) m/uL Hgb (13.0-17.5) gm/dL Hct (39.0-53.0) % MCHC (31.0-37.0) g/dL RDW (11.5-15.5) % Lymphocytes # (1.0-4.8) k/uL PT (9.0-12.0) sec INR (<1.2) BUN (9-20) mg/dL Creatinine (0.66-1.25) mg/dL Glucose (74-99) mg/dL POC Glucose (mg/dL) 131 H 132 H (75-99) mg/dL Magnesium (1.6-2.3) mg/dL AST (17-59) U/L Total Protein (6.3-8.2) g/dL Albumin (3.5-5.0) g/dL Urine Bacteria Rare H (None) /hpf Urine Mucus Rare H (None) /hpf Urine Yeast (Budding) Occasional H (None) /hpf 03/26/17 03/27/17 03/27/17 Range/Units 20: 06:34 06:34 RBC 3.78 L (4.30-5.90) m/uL Hgb 9.7 L (13.0-17.5) gm/dL Hct 31.8 L (39.0-53.0) % MCHC 30.5 L (31.0-37.0) g/dL RDW 17.0 H (11.5-15.5) % Lymphocytes # 0.8 L (1.0-4.8) k/uL PT (9.0-12.0) sec INR (<1.2) BUN 7 L (9-20) mg/dL Creatinine 0.48 L (0.66-1.25) mg/dL Glucose 112 H (74-99) mg/dL POC Glucose (mg/dL) 153 H (75-99) mg/dL Magnesium 1.5 L (1.6-2.3) mg/dL AST 14 L (17-59) U/L Total Protein 6.1 L (6.3-8.2) g/dL Albumin 2.7 L (3.5-5.0) g/dL Urine Bacteria (None) /hpf Urine Mucus (None) /hpf Urine Yeast (Budding) (None) /hpf 03/27/17 03/27/17 Range/Units 06:34 07:42 RBC (4.30-5.90) m/uL Hgb (13.0-17.5) gm/dL Hct (39.0-53.0) % MCHC (31.0-37.0) g/dL RDW (11.5-15.5) % Lymphocytes # (1.0-4.8) k/uL PT 14.6 H (9.0-12.0) sec INR 1.5 H (<1.2) BUN (9-20) mg/dL Creatinine (0.66-1.25) mg/dL Glucose (74-99) mg/dL POC Glucose (mg/dL) 114 H (75-99) mg/dL Magnesium (1.6-2.3) mg/dL AST (17-59) U/L Total Protein (6.3-8.2) g/dL Albumin (3.5-5.0) g/dL Urine Bacteria (None) /hpf Urine Mucus (None) /hpf Urine Yeast (Budding) (None) /hpf Microbiology - Last 24 Hours (Table) 03/23/17 21:00 Blood Culture - Preliminary Blood No Growth after 72 hours Assessment and Plan Plan: 1. Generalized weakness with multiple falls and altered mental status changes: Computed tomography scan of the brain showing no acute changes. Oncology has been consulted. Need to rule out metastatic disease. Need to rule out Infectious processes. Blood culture has been ordered. Urinalysis is negative. Possible infiltrate noted on chest x-ray. Patient started on Levaquin. Magnesium is also low and may be contributing to some of the weakness and mental status changes. Fentanyl patch discontinued as well may be trending to his mental status changes. computed tomography scan of the chest abdomen and pelvis shows tumor burden appears limited chest. MRI of the brain without any evidence of metastatic disease. Oncology following closely. Await their further recommendations. They're awaiting CAT scan radiology report from [facility] for further comparison. Patient evaluated by psychiatry during also recommending to discontinue the Elavil. LDL needs to be tapered to discontinue. We'll decrease dose to 25 mg daily. And work towards discontinuing the Elavil 2. Hypomagnesemia. Patient receiving magnesium supplement. Repeat labs today. Replace if needed 3. Possible infiltrates in the left lung noted on x-ray. Patient has been placed on Levaquin 4. Persistent moderate to large left-sided pleural effusion noted on chest x- ray. these are chronic findings. Per patient's , Dr. Ro is recommending no thoracentesis or pleurx catheter due to risk of infection 5. Stage IV lung cancer diagnosed 2 years ago has received chemotherapy 6. History of coronary artery disease and myocardial infarction with previous coronary artery bypass grafting 7. Diabetes mellitus type 2: Add sliding scale coverage. Resume patient's metformin 8. Former smoker history 9. Coagulopathy with an INR of 1.4 likely related to his cancer. Repeat PT/ INR in a.m. I performed an examination of the patient and discussed their management with the physician Legal Support Assistant. I have reviewed the Physician Legal Support Assistant's notes and agree with the documented findings and plan of care
[2017-03-27 11:37] LABS: Glucose,Whole Blood 134 mg/dL (75-99)
[2017-03-27] MEDS: MULTIVITAMINS, THERA 1 EACH TAB PO SCH (13:20)
--- NOTE | 2017-03-27 15:18 | P.PN ---
Progress Note - Text Progress Note Date: 03/27/17 71yo CM admitted on 03/23/17 due to frequent falls. Psychiatry consulted for evaluation of confusion Last 24hrs: Upon presentation this afternoon, patient laying in his hospital bed with by his bedside. She states that patient has been doing much better and does not appear confused. He is more oriented today and able to tell me that he is at [facility], that it is March 2017 and the day of the week is . Patient's nurse also reported that pt has improved since yesterday. No reported psychotic symptoms. No threat of harm to himself or others. MSE: Pt is a 71yo male who appears stated age in no acute distress. He is cooperative and pleasant. Speech is spontaneous with regular rate, rhythm and volume. Mood is Euthymic and affect is appropriate. Denies SI and HI. Denies hallucinations and does not appear to be responding to internal stimuli. He is oriented to person, time and place. Judgment and Insight is fair. ASSESSMENT: 1. Delirium secondary to medication, resolving 2. R/O Mild Neurocognitive Disorder PLAN: Patient's confusional state appears to be improving. No new recommendations today. Psychiatry will sign off on this case at this time. Please let us know if we can be of further assistance. Thank you.
[2017-03-27 17:15] LABS: Glucose,Whole Blood 116 mg/dL (75-99)
[2017-03-27] MEDS: oxyCODONE-APAP 10-325MG 1 EACH TAB PO PRN (19:26)
[2017-03-27] MEDS: POLYETHYLENE GLYCOL 3350 17 GM POWD.PACK PO SCH (20:32)
[2017-03-27] MEDS: ATORVASTATIN 20 MG TAB PO SCH (20:35)
[2017-03-27 20:49] LABS: Glucose,Whole Blood 123 mg/dL (75-99)
[2017-03-27] MEDS ORDERED: AMITRIPTYLINE HCL 25 MG TAB PO SCH (21:00)
[2017-03-27] MEDS ORDERED: metFORMIN 500 MG TAB PO SCH (21:00)
[2017-03-27] MEDS: LEVOFLOXACIN 750 MG TAB PO SCH (21:16)
[2017-03-27 22:36] VITALS: RESP 16
[2017-03-28] MEDS: LEVOTHYROXINE 50 MCG TAB PO SCH (06:06)
[2017-03-28 06:21] LABS: Anisocytosis Slight; Basophils % (A) 0 %; CH 25.9; CHCM 30.3; Eosinophils # (A) 0.3 k/uL (0-0.7); Eosinophils % (A) 4 %; HCT 26.2 % (39.0-53.0); HDW 2.88; Hypochromasia Marked; Luc # (Auto) 0.07; Luc % (Auto) 1; Lymphocytes # (A) 0.6 k/uL (1.0-4.8); Lymphocytes % (A) 10 %; MCH 25.7 pg (25.0-35.0); MCV 85.8 fL (80.0-100.0); Mean Platelet Volume 7.7; Monocytes # (A) 0.5 k/uL (0-1.0); Monocytes % (A) 8 %; Neutrophils # (A) 4.8 k/uL (1.3-7.7); Neutrophils % (A) 76 %; RBC 3.06 m/uL (4.30-5.90); WBC 6.3 k/uL (3.8-10.6); WBC (Perox) 6.54
[2017-03-28 06:52] LABS: Carbon Dioxide 19 mmol/L (22-30); Chloride 116 mmol/L (98-107); Glucose 74 mg/dL (74-99); Sodium 140 mmol/L (137-145)
[2017-03-28 06:53] LABS: ALT 29 U/L (21-72); AST 10 U/L (17-59); Alkaline Phosphatase 40 U/L (38-126); Anion Gap 5 mmol/L; Blood Urea Nitrogen 6 mg/dL (9-20); Calcium 6.9 mg/dL (8.4-10.2); Non-African American GFR(MDRD) >60 (>60 ml/min/1.73 sqM); Total Bilirubin 0.2 mg/dL (0.2-1.3); Total Protein 3.9 g/dL (6.3-8.2)
[2017-03-28 06:55] LABS: HGB 7.9 gm/dL (13.0-17.5)
[2017-03-28 06:58] LABS: Magnesium 1.1 mg/dL (1.6-2.3)
[2017-03-28 07:10] LABS: Potassium 2.5 mmol/L (3.5-5.1)
[2017-03-28] MEDS: INSULIN LISPRO (humaLOG) 300 UNIT/3 ML VIAL SQ SCH ×2 (08:18→12:52)
[2017-03-28 08:24] LABS: Glucose,Whole Blood 112 mg/dL (75-99)
[2017-03-28] MEDS: ASPIRIN 81 MG PO SCH (08:25)
[2017-03-28] MEDS: CHOLECALCIFEROL 1,000 UNIT TAB PO SCH (08:27)
[2017-03-28] MEDS: DOCUSATE 100 MG CAP PO SCH (08:27)
[2017-03-28] MEDS: FAMOTIDINE 20 MG TAB PO SCH (08:28)
[2017-03-28] MEDS: CARVEDILOL 3.125 MG TAB PO SCH (08:28)
[2017-03-28] MEDS: ZINC OXIDE 20% OINT 28.4 GM TUBE TOPICAL SCH (08:29)
[2017-03-28] MEDS: MULTIVITAMINS, THERA 1 EACH TAB PO SCH (08:29)
[2017-03-28 08:41] VITALS: BP 160/78; PULSE 98; TEMP 98
[2017-03-28] MEDS: PREGABALIN 75 MG CAP PO SCH (09:52)
[2017-03-28 10:11] LABS: Anisocytosis Slight; Basophils % (A) 0 %; CH 26.1; CHCM 31.5; Eosinophils # (A) 0.3 k/uL (0-0.7); Eosinophils % (A) 4 %; HCT 31.6 % (39.0-53.0); HDW 3.01; Hypochromasia Moderate; Luc # (Auto) 0.05; Luc % (Auto) 1; Lymphocytes # (A) 0.7 k/uL (1.0-4.8); Lymphocytes % (A) 8 %; MCH 25.8 pg (25.0-35.0); MCV 83.3 fL (80.0-100.0); Mean Platelet Volume 9.2; Monocytes # (A) 0.5 k/uL (0-1.0); Monocytes % (A) 6 %; Neutrophils % (A) 82 %; RDW 17.2 % (11.5-15.5); WBC 8.6 k/uL (3.8-10.6); WBC (Perox) 8.62
[2017-03-28 10:12] LABS: HGB 9.8 gm/dL (13.0-17.5)
[2017-03-28 10:16] LABS: ALT 20 U/L (21-72); AST 35 U/L (17-59); Alkaline Phosphatase 55 U/L (38-126); Anion Gap 9 mmol/L; Blood Urea Nitrogen 10 mg/dL (9-20); Calcium 10.7 mg/dL (8.4-10.2); Carbon Dioxide 26 mmol/L (22-30); Chloride 102 mmol/L (98-107); Glucose 169 mg/dL (74-99); Magnesium 1.5 mg/dL (1.6-2.3); Non-African American GFR(MDRD) >60 (>60 ml/min/1.73 sqM); Sodium 137 mmol/L (137-145); Total Bilirubin 0.5 mg/dL (0.2-1.3); Total Protein 6.2 g/dL (6.3-8.2)
[2017-03-28 10:19] LABS: Potassium 4.3 mmol/L (3.5-5.1)
[2017-03-28 12:11] LABS: Glucose,Whole Blood 127 mg/dL (75-99)
--- NOTE | 2017-03-28 12:21 | P.DS ---
Providers Date of admission: 03/23/17 22:42 Expected date of discharge: 03/28/17 Attending physician: Shawnee Alejandra Consults: 03/23/17 22:43 Consult Physician Urgent Consulting Provider: Marilyn Ro Consult Reason/Comments: History of lung cancer Do you want consulting provider notified?: Yes 03/24/17 13:18 Consult Physician Routine Consulting Provider: Nathan Grullon Consult Reason/Comments: left pleural effusion Do you want consulting provider notified?: Yes 03/25/17 09:45 Consult Physician Routine Consulting Provider: Vanessa Bolden Consult Reason/Comments: pleurex catheter placement Do you want consulting provider notified?: Yes 03/25/17 13:36 Consult Physician Routine Consulting Provider: Virgie Santos Consult Reason/Comments: confusion, hallucination, paranoia Do you want consulting provider notified?: Yes Primary care physician: [facility] Course: Discharge diagnosis 1. Generalized weakness with multiple falls and altered mental status changes: Computed tomography scan of the brain showing no acute changes. Oncology has been consulted. Need to rule out metastatic disease. Need to rule out Infectious processes. Blood culture has been ordered. Urinalysis is negative. Possible infiltrate noted on chest x-ray. Patient started on Levaquin. Magnesium is also low and may be contributing to some of the weakness and mental status changes. Fentanyl patch discontinued as well may be trending to his mental status changes. computed tomography scan of the chest abdomen and pelvis shows tumor burden appears limited chest. MRI of the brain without any evidence of metastatic disease. Oncology following closely. Await their further recommendations. They're awaiting CAT scan radiology report from [place] for further comparison. Patient evaluated by psychiatry during also recommending to discontinue the Elavil. Elavil needs to be tapered to discontinue. We'll decrease dose to 25 mg daily. And work towards discontinuing the Elavil 2. Hypomagnesemia. Patient receiving magnesium supplement. Repeat labs today. Replace if needed 3. Possible infiltrates in the left lung noted on x-ray. Patient has been placed on Levaquin. Treated 5 days of Levaquin. No Further antibiotics required. 4. Persistent moderate to large left-sided pleural effusion noted on chest x- ray. these are chronic findings. Per patient's , Dr. Ro is recommending no thoracentesis or pleurx catheter due to risk of infection 5. Stage IV lung cancer diagnosed 2 years ago has received chemotherapy 6. History of coronary artery disease and myocardial infarction with previous coronary artery bypass grafting 7. Diabetes mellitus type 2: Add sliding scale coverage. Resume patient's metformin 8. Former smoker history 9. 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 Hospital course This is a 71-year-old male, patient of Dr. Gallagher. He has a known past medical history of stage IV lung cancer that was diagnosed 2 years ago. He is under undergone chemotherapy and he follows up with Dr. Medina in the office. Patient was brought into the emergency room by EMS because he has been getting weaker on having multiple falls over the last few weeks. He is also been more confused. Most of history was obtained from the . Patient has a known past medical history of myocardial infarction coronary artery disease with previous cardiac stents and CABG, also history of diabetes mellitus, GERD and former smoking history. Oncology has been consulted. Computed tomography scan of brain showed no acute intracranial hemorrhage or midline shift. There is mild to moderate diffuse age-related cerebral atrophy and chronic small vessel ischemic changes noted. chest x-ray shows overall stable findings with chronic emphysematous change and mild cardiomegaly with persistent moderate to large left-sided pleural effusion or fluid collection and associated left lung atelectasis and/or infiltrate. Patient did have a low-grade temp of 100.9 on admission and he does admit to having a mild cough that is productive at times. He was started on Levaquin in the emergency room. EKG had shown sinus tachycardia with PVCs and a right bundle branch block. Heart rate had been 104. He also had hypomagnesemia with magnesium level 1.1. Patient received magnesium supplement in the emergency room. Repeat magnesium level pending. Patient denies any chest pain or shortness of breath. Denies any nausea or vomiting. Denies any burning with urination. He reports that it's been multiple date days since his last bowel movement. He denies any abdominal pain. But admits to some diffuse abdominal discomfort. Patient was seen by oncology and pulmonary service during this admission. The left pleural effusion is chronic for patient. Patient not have a thoracentesis completed during this admission. Likely patient's generalized weakness was related to pain medication the Elavil approximately his low magnesium. As well as his overall conditioning due to his lung cancer. Patient was able to work with physical therapy he has been able to ambulate to the bathroom. and patient are agreeable to go home with home care. Patient's magnesium has been replaced. He will be placed on oral magnesium for home magnesium at discharge was 1.5. There were concerns initially about a possible infiltrate in the left lung patient was placed on Levaquin in the emergency room. Patient had no cough fever or white count. He was seen by pulmonary service. He received 5 days Levaquin. No further need for adequate Levaquin at time of discharge. Most likely the lung changes related to his chronic left pleural effusion and cancer. Patient did have a computed tomography scan of the chest abdomen and pelvis with no evidence of any metastatic disease. An MRI of the brain showed no evidence of any metastatic disease. Patient will follow-up with oncology in the outpatient setting. Patient seen by psychiatry. They recommended to taper patient off of the Elavil. Patient's mentation has returned to baseline. He is medically stable for discharge. Please refer to chart for any further details. I performed an examination of the patient and discussed their management with the physician Casework Supervisor. I have reviewed the Physician Casework Supervisor's notes and agree with the documented findings and plan of care Patient Condition at Discharge: Stable Plan - Discharge Summary New Discharge Prescriptions: New Amitriptyline HCl [Elavil] 25 mg PO HS #30 tab Docusate [Colace] 100 mg PO BID #60 cap Polyethylene Glycol 3350 [Miralax] 17 gm PO HS #30 powd.pack Zinc Oxide 20% Oint 1 applic TOPICAL DAILY 7 Days #1 tube Magnesium Oxide [Mag-Ox] 400 mg PO DAILY #30 tablet Continue Atorvastatin [Lipitor] 20 mg PO HS Aspirin 81 mg PO DAILY [place]-3 Fatty Acids/Fish Oil [Fish Oil 1,000 mg Softgel] 1 cap PO BID Multivit-Min/FA/Lycopene/Lut [Centrum Silver Tablet] 1 tab PO DAILY Ergocalciferol [Vitamin D2 (DRISDOL)] 50,000 units PO BOTELLO Cholecalciferol [Vitamin D3] 1,000 unit PO BID metFORMIN HCL [Glucophage] 500 mg PO HS Carvedilol [Coreg] 3.125 mg PO DAILY Levothyroxine Sodium [Synthroid] 50 mcg PO DAILY Lidocaine-Prilocaine Cream [Emla Cream 2.5%/2.5%] 1 applic TOPICAL DAILY PRN PRN Reason: PORT ACCESS oxyCODONE-APAP 10-325MG [Percocet 10-325 mg] 1 tab PO Q4H PRN PRN Reason: Pain Pregabalin [Lyrica] 150 mg PO TID Prochlorperazine [Compazine] 10 mg PO Q6H PRN PRN Reason: Nausea Discontinued Amitriptyline HCl [Elavil] 50 mg PO HS fentaNYL 100MCG/HR PATCH [Duragesic 100MCG/HR] 100 mcg TRANSDERM Q72H Discharge Medication List Aspirin 81 mg PO DAILY 08/09/14 [History] Atorvastatin [Lipitor] 20 mg PO HS 08/09/14 [History] Multivit-Min/FA/Lycopene/Lut [Centrum Silver Tablet] 1 tab PO DAILY 09/28/14 [ History] [place]-3 Fatty Acids/Fish Oil [Fish Oil 1,000 mg Softgel] 1 cap PO BID 09/28/14 [ History] Cholecalciferol [Vitamin D3] 1,000 unit PO BID 02/02/15 [History] Ergocalciferol [Vitamin D2 (DRISDOL)] 50,000 units PO BOTELLO 02/02/15 [History] metFORMIN HCL [Glucophage] 500 mg PO HS 04/06/15 [History] Carvedilol [Coreg] 3.125 mg PO DAILY 03/23/17 [History] Levothyroxine Sodium [Synthroid] 50 mcg PO DAILY 03/23/17 [History] Lidocaine-Prilocaine Cream [Emla Cream 2.5%/2.5%] 1 applic TOPICAL DAILY PRN [History] Pregabalin [Lyrica] 150 mg PO TID 03/23/17 [History] Prochlorperazine [Compazine] 10 mg PO Q6H PRN 03/23/17 [History] oxyCODONE-APAP 10-325MG [Percocet 10-325 mg] 1 tab PO Q4H PRN 03/23/17 [History] Amitriptyline HCl [Elavil] 25 mg PO HS #30 tab 03/28/17 [Rx] Docusate [Colace] 100 mg PO BID #60 cap 03/28/17 [Rx] Magnesium Oxide [Mag-Ox] 400 mg PO DAILY #30 tablet 03/28/17 [Rx] Polyethylene Glycol 3350 [Miralax] 17 gm PO HS #30 powd.pack 03/28/17 [Rx] Zinc Oxide 20% Oint 1 applic TOPICAL DAILY 7 Days #1 tube 03/28/17 [Rx] Follow up Appointment(s)/Referral(s): aMrilyn Ro MD [STAFF PHYSICIAN] - 04/07/17 10:00 am Joanna Hernandez DO [Primary Care Provider] - 1 Week Activity/Diet/Wound Care/Special Instructions: [facility] Diet: regular Activity: as tolerated Discharge Disposition: HOME WITH HOME HEALTH SERVICES
[2017-03-30] MEDS ORDERED: ERGOCALCIFEROL 50,000 UNIT CAP PO SCH (09:00)
== END 2017-03-28 15:31 | disposition home health service (06) | DRG 181 ==
LOC: EC 20:35 → 5MS5E 22:42
PROVIDERS: ADMIT Internal Medicine; ATTEND Internal Medicine
DX: C34.90 Malignant neoplasm of unspecified part of unspecified bronchus or lung (principal); J91.0 Malignant pleural effusion; D68.9 Coagulation defect, unspecified; C79.51 Secondary malignant neoplasm of bone; E83.42 Hypomagnesemia; E11.9 Type 2 diabetes mellitus without complications; G89.3 Neoplasm related pain (acute) (chronic); D63.8 Anemia in other chronic diseases classified elsewhere; I25.10 Atherosclerotic heart disease of native coronary artery without angina pectoris; K21.9 Gastro-esophageal reflux disease without esophagitis; R00.0 Tachycardia, unspecified; R53.1 Weakness; K59.00 Constipation, unspecified; R41.0 Disorientation, unspecified; R29.6 Repeated falls; I45.10 Unspecified right bundle-branch block; T50.905A Adverse effect of unspecified drugs, medicaments and biological substances, initial encounter; Z95.1 Presence of aortocoronary bypass graft; Z79.899 Other long term (current) drug therapy; Z79.82 Long term (current) use of aspirin; Z51.81 Encounter for therapeutic drug level monitoring; Z87.891 Personal history of nicotine dependence; Z82.3 Family history of stroke; Z82.49 Family history of ischemic heart disease and other diseases of the circulatory system; Z98.1 Arthrodesis status; Z90.49 Acquired absence of other specified parts of digestive tract; I25.2 Old myocardial infarction; Z88.0 Allergy status to penicillin; Z79.84 Long term (current) use of oral hypoglycemic drugs; Z92.21 Personal history of antineoplastic chemotherapy; Y92.009 Unspecified place in unspecified non-institutional (private) residence as the place of occurrence of the external cause; Z79.891 Long term (current) use of opiate analgesic; W19.XXXA Unspecified fall, initial encounter; Z92.3 Personal history of irradiation
CPT/HCPCS: 36415; 70450; 70553; 71020; 71260; 74177; 76604; 80053; 81001; 82140; 82550; 82553; 83036; 83605; 83735; 84484; 85025; 85610; 85730; 87040; 93005; 96360; 99285

== ENCOUNTER 2017-04-25 21:31 | Emergency (ER) | payer MEDICARE ==
[2017-04-25 21:39] VITALS: TEMP 100
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
[2017-04-25 23:49] LABS: Appearance,Urine Cloudy (Clear); Bilirubin,Urine Negative (Negative); Glucose,Urine (UA) Negative (Negative); Ketones,Urine Negative (Negative); Leukocyte Esterase,Urine Small (Negative); Mucus,Urine Occasional /hpf; Nitrite,Urine Negative (Negative); Particle Count 3295; Protein,Urine 2+ (Negative); RBC,Urine >182 /hpf (0-5); Specific Gravity,Urine 1.016 (1.001-1.035); UA Billing (MACRO vs. MICRO) MICRO; Urobilinogen,Urine <2.0 mg/dL (<2.0); WBC,Urine >182 /hpf (0-5)
[2017-04-26] MEDS ORDERED: CIPROFLOXACIN HCL 500 MG TAB PO STA (00:15)
[2017-04-26 00:32] VITALS: BP 153/77; PULSE 80; RESP 16
== END 2017-04-26 00:32 | disposition home or self-care (01) ==
LOC: EC 21:31
DX: N39.0 Urinary tract infection, site not specified (principal); F41.9 Anxiety disorder, unspecified; E11.9 Type 2 diabetes mellitus without complications; I25.2 Old myocardial infarction; Z98.84 Bariatric surgery status; Z90.49 Acquired absence of other specified parts of digestive tract; Z85.118 Personal history of other malignant neoplasm of bronchus and lung; Z87.891 Personal history of nicotine dependence; Z88.0 Allergy status to penicillin; Z79.82 Long term (current) use of aspirin; Z79.84 Long term (current) use of oral hypoglycemic drugs; Z79.899 Other long term (current) drug therapy
CPT/HCPCS: 81001; 87086; 99284

== ENCOUNTER 2017-05-02 08:47 | Day surgery (SDC) | payer MEDICARE ==
[2017-05-02] MEDS ORDERED: HYDROmorphone 0.5 MG/0.5 ML SYRINGE IVP PRN (08:52)
[2017-05-02] MEDS ORDERED: ALPRAZolam 0.25 MG TAB PO ONE (08:52)
[2017-05-02 09:37] VITALS: RESP 16; TEMP 97.8
[2017-05-02 09:41] LABS: Mean Platelet Volume 8.6
[2017-05-02 09:59] LABS: INR 1.3 (<1.2)
[2017-05-02 10:02] LABS: Prothrombin Time 12.6 sec (9.0-12.0)
--- NOTE | 2017-05-02 11:03 | XR ---
EXAMINATION TYPE: XR chest 1V portable DATE OF EXAM: 05/02/2017 COMPARISON: 03/23/2017. HISTORY: Lung cancer and left-sided pleural effusion. TECHNIQUE: Single frontal view of the chest is obtained. FINDINGS: Similar appearing new complete opacification of the left hemithorax is seen. Right lung re kasi well aerated. Intact median sternotomy wires are unchanged. Right-sided central venous catheter again has its distal tip in the distal aspect of the superior vena cava. No postprocedural pneumotho rax is identified. Acromioclavicular arthropathy is mild. Old healed second left rib fractures unchan ged. IMPRESSION: New complete opacification of the left hemithorax from a loculated pleural effusion and compressive atelectasis with no evidence of postprocedural pneumothorax.
--- NOTE | 2017-05-02 11:04 | US ---
Ultrasound-guided therapeutic and diagnostic thoracentesis DATE OF EXAM: 05/02/2017 CLINICAL HISTORY: Lung cancer with left-sided loculated pleural effusion. The procedure was discussed with the patient. The risks, complications, benefits, and alternatives we re discussed and any questions were answered. Informed consent was obtained. The patient was placed supine on the ultrasound table and prepped and draped in the usual sterile fas hion. All elements of maximal barrier and sterile technique were utilized. Under ultrasound guidance, access into the left pleural space was obtained, via the thoracentesis cat heter system and direct ultrasound guidance. Approximately 95 cc liters of serosanguineous fluid was removed from a loculated left pleural effusion. The patient was stable throughout the procedure and was monitored after the procedure. IMPRESSION: Successful therapeutic and diagnostic left thoracentesis under ultrasound guidance.
[2017-05-02 11:51] VITALS: BP 116/61; PULSE 80
[2017-05-02 13:34] LABS: RBC, Body Fluid 100000 /uL
[2017-05-02 18:21] LABS: Glucose, BF Source Pleural Fluid; LDH, Body Fluid Source Pleural Fluid; T. Protein, Body Fluid Source Pleural Fluid; Total Protein, Body Fluid 3600 mg/dL
== END 2017-05-02 11:50 | disposition home or self-care (01) ==
LOC: RADPROMAIN 08:47
PROVIDERS: ATTEND Internal Medicine
DX: J91.8 Pleural effusion in other conditions classified elsewhere (principal); C34.90 Malignant neoplasm of unspecified part of unspecified bronchus or lung; J98.11 Atelectasis
CPT/HCPCS: 88108; 88305; 89050; 85049; 85610; 87070; 87205; 87075; 87116; 87206; 82945; 83615; 84157; 71010; 32555; J1642

== ENCOUNTER 2017-06-20 06:20 | Inpatient (IN) | payer MEDICARE ==
[2017-06-20] MEDS ORDERED: SODIUM CHLORIDE 0.9% 1,000 ML IV STA ×2 (06:43→13:39)
[2017-06-20] MEDS ORDERED: SODIUM CHLORIDE 0.9% 500 ML IV STA (06:43)
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
[2017-06-20 06:55] LABS: Anisocytosis Slight; Basophils % (A) 0 %; Eosinophils # (A) 0.5 k/uL (0-0.7); Eosinophils % (A) 7 %; HCT 26.4 % (39.0-53.0); HGB 8.3 gm/dL (13.0-17.5); Hypochromasia Slight; Lymphocytes # (A) 0.7 k/uL (1.0-4.8); Lymphocytes % (A) 9 %; MCH 25.5 pg (25.0-35.0); MCHC 31.6 g/dL (31.0-37.0); MCV 80.8 fL (80.0-100.0); Mean Platelet Volume 10.3; Microcytosis Slight; Monocytes # (A) 0.5 k/uL (0-1.0); Monocytes % (A) 6 %; Neutrophils # (A) 6.2 k/uL (1.3-7.7); Neutrophils % (A) 78 %; Platelet Count 250 k/uL (150-450); RBC 3.26 m/uL (4.30-5.90); RDW 18.6 % (11.5-15.5); WBC 7.9 k/uL (3.8-10.6)
[2017-06-20 07:11] LABS: INR 1.3 (<1.2)
[2017-06-20 07:22] LABS: Creatine Kinase 50 U/L (55-170)
--- NOTE | 2017-06-20 07:27 | CT ---
EXAMINATION TYPE: CT brain wo con DATE OF EXAM: 06/20/2017 COMPARISON: 03/25/2017 HISTORY: Weakness CT DLP: 1047.1 mGycm Automated exposure control for dose reduction was used. FINDINGS: There is no acute intracranial hemorrhage or midline shift identified. There is diffuse v entricular and sulcal prominence consistent with diffuse age-related cerebral atrophy. There is rede monstration of focal area of hypoattenuation within the right chaya related to remote pontine lacunar injury. There is low-attenuation in the periventricular white matter consistent with chronic small ve ssel ischemic change. The globes are intact. The previously described probable arachnoid cyst is aga in seen on image 24 along the right lateral temporal bone within the middle cranial fossa. Incidental note is made of atherosclerosis of the intracranial vasculature. Punctate orbital calcifications are incidentally noted. Calvarial defect likely from prior jenny hole is seen within the right posterior temporal lobe bone. Minimal mucosal thickening is seen within the ethmoid air cells. Remaining parana cas sinuses and mastoid air cells are well aerated. IMPRESSION: 1. No acute intracranial hemorrhage or midline shift. 2. Old pontine lacunar injury. 3. Diffuse age-related cerebral atrophy and chronic small vessel ischemic change noted. 4. Probable right middle cranial fossa arachnoid cyst. 5. Right posterior parietal calvarial defect, likely from prior jenny hole/surgical intervention.
--- NOTE | 2017-06-20 07:30 | XR ---
EXAMINATION TYPE: XR chest 2V DATE OF EXAM: 06/20/2017 COMPARISON: 05/14/2017 HISTORY: Lung cancer. Shortness of breath. TECHNIQUE: Frontal and lateral views of the chest are obtained. FINDINGS: There is near complete opacification of the left lung related to the known pleural effusio n and atelectasis. This is similar in degree to the prior of 05/14/2017. Right-sided Mediport is uncha nged in position. Right lung remains clear. There is obscuration and silhouetting of the known left p ulmonary mass. Cardiac silhouette is partially obscured but stable from the prior. Osseous structures appear intact. Post CABG changes the chest are noted. IMPRESSION: Stable near complete opacification of the left hemithorax from the known large left pleu ral effusion, silhouetted pulmonary mass and atelectasis. Right lung remains clear.
[2017-06-20 07:35] LABS: Creatine Kinase MB 0.7 ng/mL (0.0-2.4); Troponin I <0.012 ng/mL (0.000-0.034)
[2017-06-20 08:16] LABS: Amorphous Sediment,Urine Rare /hpf; Appearance,Urine Cloudy (Clear); Bilirubin,Urine Negative (Negative); Blood,Urine Large (Negative); Color,Urine Yellow; Glucose,Urine (UA) Negative (Negative); Hyaline Casts,Urine 4 /lpf (0-2); Ketones,Urine Negative (Negative); Leukocyte Esterase,Urine Negative (Negative); Mucus,Urine Rare /hpf; Nitrite,Urine Negative (Negative); PH, Urine 7.5 (5.0-8.0); Protein,Urine Trace (Negative); RBC,Urine >182 /hpf (0-5); Specific Gravity,Urine 1.011 (1.001-1.035); Urobilinogen,Urine <2.0 mg/dL (<2.0); WBC,Urine 6 /hpf (0-5)
[2017-06-20 08:32] LABS: ALT 20 U/L (21-72); AST 20 U/L (17-59); Albumin 3.1 g/dL (3.5-5.0); Alkaline Phosphatase 57 U/L (38-126); Anion Gap 9 mmol/L; Blood Urea Nitrogen 15 mg/dL (9-20); Carbon Dioxide 29 mmol/L (22-30); Chloride 99 mmol/L (98-107); Glucose 110 mg/dL (74-99); Magnesium 1.8 mg/dL (1.6-2.3); Potassium 4.1 mmol/L (3.5-5.1); Sodium 137 mmol/L (137-145); Total Bilirubin 0.3 mg/dL (0.2-1.3); Total Protein 6.7 g/dL (6.3-8.2)
[2017-06-20] MEDS ORDERED: NALOXONE 0.4 MG/ML 1 ML VIAL IV PRN (08:53)
[2017-06-20] MEDS ORDERED: HYDROmorphone 2 MG/ML 1 ML SYRINGE IVP PRN (08:53)
[2017-06-20] MEDS ORDERED: NITROGLYCERIN SL TABS 0.4 MG TAB SUBLINGUAL PRN (13:11)
[2017-06-20] MEDS ORDERED: LIDOCAINE-PRILOCAINE 2.5-2.5% CREAM 5 GM TUBE TOPICAL PRN (13:11)
[2017-06-20] MEDS ORDERED: PROCHLORPERAZINE 10 MG TAB PO PRN (13:11)
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
[2017-06-20] MEDS: LEVOFLOXACIN 500MG-D5W PMX 500 MG in DEXTROSE/WATER 1 100ML.BAG IVPB SCH (14:10)
[2017-06-20] MEDS: ENOXAPARIN 40 MG/0.4 ML SYRINGE SQ SCH (14:10)
[2017-06-20] MEDS: ASPIRIN 81 MG PO SCH (14:11)
--- NOTE | 2017-06-20 15:03 | US ---
EXAMINATION TYPE: US chest DATE OF EXAM: 06/20/2017 COMPARISON: x-ray 06/20/2017 CLINICAL HISTORY: Markings for thoracentesis by pulmonary staff. Pleural effusion EXAM MEASUREMENTS: Right Pleural Effusion fluid pocket: 3.4 cm Right skin to fluid thickness: 5.3 cm Right side NOT marked for possible thoracentesis outside the dept. Left side NOT marked for possible thoracentesis outside the dept. Pulmonologists are able to review the images in the patient?s EMR. Pleural fluid on the left shows possible loculations, internal debris IMPRESSIONS: Left pleural effusion. No significant right pleural effusion.
[2017-06-20] MEDS ORDERED: HYDROmorphone 0.5 MG/0.5 ML SYRINGE IVP PRN (16:17)
[2017-06-20] MEDS: CARVEDILOL 3.125 MG TAB PO SCH (17:51)
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
[2017-06-20] MEDS ORDERED: ZOLEDRONIC ACID 4 MG in SODIUM CHLORIDE 0.9% 100 ML IV ONE (19:00)
[2017-06-20] MEDS ORDERED: NON-FORMULARY DRUG (Omega-3 Fatty Acids/Fish Oil [Fish Oil 1,000 Mg Softgel] 1 CAP) PO SCH (21:00)
[2017-06-20] MEDS ORDERED: SULFAMETHOX-TMP 800-160MG 1 EACH TAB PO SCH (21:00)
[2017-06-20] MEDS: PREGABALIN 50 MG CAP PO SCH (22:05)
[2017-06-20] MEDS: POLYETHYLENE GLYCOL 3350 17 GM POWD.PACK PO SCH (22:05)
[2017-06-20] MEDS: MAGNESIUM OXIDE 400 MG TAB PO SCH (22:07)
[2017-06-20] MEDS: AMITRIPTYLINE HCL 25 MG TAB PO SCH (22:07)
[2017-06-20] MEDS: ATORVASTATIN 20 MG TAB PO SCH (22:07)
[2017-06-20] MEDS: metFORMIN 500 MG TAB PO SCH (22:07)
[2017-06-20] MEDS: CHOLECALCIFEROL 1,000 UNIT TAB PO SCH (23:19)
[2017-06-21] MEDS: LEVOTHYROXINE 50 MCG TAB PO SCH (06:31)
[2017-06-21 07:39] LABS: Anisocytosis Slight; Basophils % (A) 0 %; Eosinophils # (A) 0.3 k/uL (0-0.7); Eosinophils % (A) 3 %; HCT 27.2 % (39.0-53.0); HGB 8.3 gm/dL (13.0-17.5); Hypochromasia Moderate; Lymphocytes # (A) 0.8 k/uL (1.0-4.8); Lymphocytes % (A) 10 %; MCH 24.9 pg (25.0-35.0); MCHC 30.5 g/dL (31.0-37.0); MCV 81.6 fL (80.0-100.0); Mean Platelet Volume 8.4; Microcytosis Slight; Monocytes # (A) 0.4 k/uL (0-1.0); Monocytes % (A) 5 %; Neutrophils # (A) 6.4 k/uL (1.3-7.7); Neutrophils % (A) 80 %; Platelet Count 233 k/uL (150-450); RBC 3.33 m/uL (4.30-5.90); RDW 18.2 % (11.5-15.5)
[2017-06-21 07:46] LABS: ALT 25 U/L (21-72); AST 13 U/L (17-59); Albumin 2.8 g/dL (3.5-5.0); Alkaline Phosphatase 65 U/L (38-126); Anion Gap 7 mmol/L; Blood Urea Nitrogen 10 mg/dL (9-20); Calcium 11.6 mg/dL (8.4-10.2); Carbon Dioxide 32 mmol/L (22-30); Chloride 99 mmol/L (98-107); Glucose 108 mg/dL (74-99); Potassium 3.9 mmol/L (3.5-5.1); Sodium 138 mmol/L (137-145); Total Bilirubin 0.3 mg/dL (0.2-1.3); Total Protein 6.1 g/dL (6.3-8.2)
[2017-06-21] MEDS: ENOXAPARIN 40 MG/0.4 ML SYRINGE SQ SCH (08:14)
[2017-06-21] MEDS: MAGNESIUM OXIDE 400 MG TAB PO SCH ×2 (08:15→20:51)
[2017-06-21] MEDS: CHOLECALCIFEROL 1,000 UNIT TAB PO SCH ×2 (08:15→20:53)
[2017-06-21] MEDS: ASPIRIN 81 MG PO SCH (08:15)
[2017-06-21] MEDS: CARVEDILOL 3.125 MG TAB PO SCH ×2 (08:15→17:29)
[2017-06-21] MEDS: PREGABALIN 50 MG CAP PO SCH ×2 (08:18→20:50)
[2017-06-21] MEDS: oxyCODONE-APAP 10-325MG 1 EACH TAB PO PRN (10:15)
[2017-06-21 11:31] VITALS: BMI 42.0
--- NOTE | 2017-06-21 11:32 | P.PN ---
Subjective Progress Note Date: 06/28/17 Principal diagnosis: Stage IV squamous cell lung cancer, loculated Left pleural effusion. Vernon is a 72-year-old male patient past medical history of stage IV squamous cell lung cancer, status post chemotherapy, presently on Opdivo, was brought to the ED per EMS and 06/20/2017 at 6:00 in the morning with complaints of progressive weakness, falls, and hematuria. He is currently being treated for a urinary tract infection, did have a low-grade fever at home, but denied any fever or chills. His primary care physician prescribed Bactrim for his UTI. Other medical history includes coronary artery disease, diabetes mellitus, hyperlipidemia, [place], hypothyroidism, neuropathy. His chest x-ray on 06/20/2017 showed stable near complete opacification of the left hemothorax from the known large left pleural effusion, silhouette a pulmonary mass and atelectasis. The right lung was clear. This was compared to the previous chest x-ray on 2016. Previously in March, cardiothoracic surgery had seen the patient in consult for the placement of Pleurx catheter for his malignant pleural effusion, which was likely to recur. Patient had refused a Pleurx catheter at that time, stating that he was told by Dr. Medina to not let anybody place one in his chest. Patient had a ultrasound-guided thoracentesis on 05/02/2017 with a drainage of only 95 mL of pleural fluid, the effusion itself was found to be very loculated, which would also preclude placement of any long-term pleural catheters. Lab work shows no evidence of leukocytosis, his WBC is within normal limits at 7.9, hemoglobin is 8.3, INR is 1.3, no electrolyte abnormality , renal profile is within normal limits with BUN of 15, and creatinine 0.90. Patient was found to have lactic acidosis with a lactic acid of 3.6, elevated calcium of 12, troponin was negative 1, proBNP was 1640, urinalysis showed trace protein, large amount of blood, negative nitrite and negative leukocyte esterase, urine WBC and mucus were positive. Patient not complaining of any acute respiratory distress, his respirations are shallow but nonlabored. His oxygenation is stable, on 2 L per nasal cannula he is satting 96%. He is pale and weak, but in no acute distress, resting in bed, with his spouse at the bedside. He did receive fluid resuscitation with 1 L of 0.9 normal saline, and his maintenance IV fluids were increased to 100 ML per hour, and subsequently his lactic acid did decrease to 1.0. We are seeing him in consultation for the large left pleural effusion. Reevaluated today on 06/21/2017, patient remained generally weak, receiving treatment for slightly elevated calcium/hypercalcemia, reviewed the results of the ultrasound of the chest with him and his , and felt that the fluid is loculated, hence will not recommend thoracentesis, and will not recommend decortication. It is best to leave the effusion alone as it is for now. Labs were reviewed hemoglobin is 8.3, basic metabolic profile is normal, potassium is down to 11.6. Objective - Vital Signs Vital signs: Vital Signs Temp 97.8 F 06/21/17 07:00 Pulse 95 06/21/17 07:00 Resp 16 06/21/17 07:00 BP 164/80 06/21/17 07:00 Pulse Ox 95 06/21/17 07:00 Intake & Output 06/20/17 06/21/17 06/21/17 18:59 06:59 18:59 Intake Total 400 Output Total 300 550 Balance 100 -550 Intake: IV 400 Levofloxacin 500Mg-D5w 100 Pmx 500 mg In Dextrose/ Water 1 100ml.bag @ 100 mls/hr IVPB Q24H [facility] Rx#: [id number] Sodium Chloride 0.9% 1, 300 000 ml @ 100 mls/hr IV . Q10H [facility] Rx#:[id number] Output: Urine 300 550 Other: Voiding Method Urinal Urinal Urinal # Voids 2 - Exam GENERAL EXAM: Alert, 72-year-old white male, pale, weak, but in no apparent distress HEAD: Normocephalic/atraumatic. EYES: Normal reaction of pupils, equal size. Conjunctiva pink, sclera white. NOSE: Clear with pink turbinates. THROAT: No erythema or exudates. NECK: No masses, no JVD, no thyroid enlargement, no adenopathy. CHEST: No chest wall deformity. Symmetrical expansion. LUNGS: Equal air entry with no crackles, wheeze, rhonchi. Lung sounds are diminished, more so on the left CVS: Regular rate and rhythm, normal S1 and S2, no gallops, no murmurs, no rubs ABDOMEN: Soft, nontender. No hepatosplenomegaly, normal bowel sounds, no guarding or rigidity. EXTREMITIES: No clubbing, no edema, no cyanosis, 2+ pulses and upper and lower extremities. MUSCULOSKELETAL: Muscle strength and tone normal. SPINE: No scoliosis or deformity SKIN: No rashes CENTRAL NERVOUS SYSTEM: Alert and oriented -3. No focal deficits, tone is normal in all 4 extremities. PSYCHIATRIC: Alert and oriented -3. Appropriate affect. Intact judgment and insight. - Labs CBC & Chem 7: 06/21/17 06:54 06/21/17 06:54 Labs: Abnormal Lab Results - Last 24 Hours (Table) 06/21/17 06/21/17 Range/Units 06:54 06:54 RBC 3.33 L (4.30-5.90) m/uL Hgb 8.3 L (13.0-17.5) gm/dL Hct 27.2 L (39.0-53.0) % MCH 24.9 L (25.0-35.0) pg MCHC 30.5 L (31.0-37.0) g/dL RDW 18.2 H (11.5-15.5) % Lymphocytes # 0.8 L (1.0-4.8) k/uL Carbon Dioxide 32 H (22-30) mmol/L Glucose 108 H (74-99) mg/dL Calcium 11.6 H (8.4-10.2) mg/dL AST 13 L (17-59) U/L Total Protein 6.1 L (6.3-8.2) g/dL Albumin 2.8 L (3.5-5.0) g/dL Microbiology - Last 24 Hours (Table) 06/20/17 07:55 Urine Culture - Preliminary Urine,Voided Assessment and Plan Assessment: #1. Acute sepsis, secondary to acute urinary tract infection. Patient presented with worsening weakness, falls, hematuria. Has been undergoing outpatient treatment for UTI with a course of Bactrim. #2. Lactic acidosis, secondary to the above, responded well to IV fluid resuscitation. Initial lactic acid of 3.6 on admission, subsequently came down to 1.0 after IV fluids #3. Large left pleural effusion, malignant, which was present during previous hospitalizations, loculated. Patient underwent ultrasound-guided thoracentesis on 05/02/2017 with the drainage of only 95 mL of pleural fluid. Had previously refused Pleurx catheter placement, but the loculation of the pleural fluid would not allow successful placement of the Pleurx catheter anyway. Patient is not having any acute oxygenation issues or increased dyspnea related to this effusion. Repeat ultrasound of the chest on 06/20/2017 was ordered #4. Generalized weakness, falls due to acute UTI with sepsis, and multiple comorbidities, including advanced squamous cell carcinoma with metastasis #5. 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 Coronary artery disease, with previous [place], PCI and stenting, coronary artery bypass grafting #7. Chronic anemia of chronic disease #8. Back surgery with fusion and laminectomy #9. History of bariatric surgery Recommendation: Continue present supportive care measures, no plans to do thoracentesis or Pleurx catheter placement, it is best to leave the effusion alone for now, the risks outweigh the benefits of any intervention. Patient and understood fully and agreeable with that recommendation. In the meantime continue addressing his hypercalcemia, and treat symptomatically. We' ll continue to follow. Time with Patient: Less than 30
--- NOTE | 2017-06-21 12:49 | P.PN ---
Subjective Progress Note Date: 06/21/17 Vernon Crouch is a 72-year-old male, patient of Dr Joanna Hernandez, with a known history of stage IV lung cancer who was brought in by EMS this morning for progressively worsening weakness. He has had 2 falls the last two weeks and this morning was found on the floor by paramedics after family called on the patient became weak after walking back from the bathroom and he became weak and labs helped down to the floor. He also is had some blood in his urine. He was seen by his primary care physician and is being treated for urinary tract infection with a course of Bactrim. Per paramedics he had a temporal scan of 99.1. Patient denies any fevers or chills at home no sweats no overt cough. The patient is a somewhat poor historian. Chest x-ray in the emergency room revealed evidence of near complete opacification of the left hemithorax with large pleural effusion. Patient has a known history of lung cancer followed by Dr. Medina his last chemotherapy was 6 weeks ago. on 06/21/2017, patient is weak, receiving treatment for slightly elevated calcium /hypercalcemia, pulmonary are not recommending thoracentesis at this time. Patient had hematuria urine culture is still pending he is receiving IV Levaquin and is feeling better Objective - Vital Signs Vital signs: Vital Signs Temp 97.8 F 06/21/17 07:00 Pulse 95 06/21/17 07:00 Resp 16 06/21/17 07:00 BP 164/80 06/21/17 07:00 Pulse Ox 95 06/21/17 07:00 Intake & Output 06/20/17 06/21/17 06/21/17 18:59 06:59 18:59 Intake Total 400 Output Total 300 550 Balance 100 -550 Weight 161.025 kg Intake: IV 400 Levofloxacin 500Mg-D5w 100 Pmx 500 mg In Dextrose/ Water 1 100ml.bag @ 100 mls/hr IVPB Q24H [facility] Rx#: [id number] Sodium Chloride 0.9% 1, 300 000 ml @ 100 mls/hr IV . Q10H [facility] Rx#:[id number] Output: Urine 300 550 Other: Voiding Method Urinal Urinal Urinal # Voids 2 - Exam In general patient is alert responsive in no apparent distress HEENT head normocephalic and atraumatic Neck is supple no JVD no goiter no lymphadenopathy Chest exam reveals a few scattered crackles in both bases no wheezing, absent respiratory sounds on the left Cardiac exam reveals regular heart sounds S1 and S2 no gallops no murmurs Abdomen is soft nontender no organomegaly was normal bowel sounds Extremity exam reveals minimal edema no cyanosis or clubbing Neurological examination reveals no gross focal deficit - Labs CBC & Chem 7: 06/21/17 06:54 06/21/17 06:54 Labs: Abnormal Lab Results - Last 24 Hours (Table) 06/21/17 06/21/17 Range/Units 06:54 06:54 RBC 3.33 L (4.30-5.90) m/uL Hgb 8.3 L (13.0-17.5) gm/dL Hct 27.2 L (39.0-53.0) % MCH 24.9 L (25.0-35.0) pg MCHC 30.5 L (31.0-37.0) g/dL RDW 18.2 H (11.5-15.5) % Lymphocytes # 0.8 L (1.0-4.8) k/uL Carbon Dioxide 32 H (22-30) mmol/L Glucose 108 H (74-99) mg/dL Calcium 11.6 H (8.4-10.2) mg/dL AST 13 L (17-59) U/L Total Protein 6.1 L (6.3-8.2) g/dL Albumin 2.8 L (3.5-5.0) g/dL Microbiology - Last 24 Hours (Table) 06/20/17 07:55 Urine Culture - Preliminary Urine,Voided Assessment and Plan Plan: #1 severe generalized weakness was multiple falls #2 lactic acidosis, improved #3 urinary tract infection, patient is receiving IV Levaquin and is improving awaiting urine culture #4 underlying history of lung cancer #5 left pleural effusion with near complete opacification of the left lung, no plans for thoracentesis per pulmonary at this time #6 previous history of coronary artery disease, with history of coronary artery bypass graft surgery #7 previous history of herniated disc with previous laminectomy At this time patient is admitted to medical floor Will obtain urine culture and blood culture Will give IV fluid Patient is now complaining of diarrhea Will obtain stools for C. diff Consultation for oncology was initiated Will consult pulmonary in that regard to pleural effusion and lung cancer Physical therapy and occupational therapy in that regard to extreme weakness Prognosis is guarded will follow closely
[2017-06-21] MEDS: LEVOFLOXACIN 500MG-D5W PMX 500 MG in DEXTROSE/WATER 1 100ML.BAG IVPB SCH (14:28)
[2017-06-21] MEDS: POLYETHYLENE GLYCOL 3350 17 GM POWD.PACK PO SCH (20:49)
[2017-06-21] MEDS: ATORVASTATIN 20 MG TAB PO SCH (20:50)
[2017-06-21] MEDS: AMITRIPTYLINE HCL 25 MG TAB PO SCH (20:51)
[2017-06-21] MEDS: metFORMIN 500 MG TAB PO SCH (20:51)
[2017-06-22] MEDS: LEVOTHYROXINE 50 MCG TAB PO SCH (05:53)
[2017-06-22] MEDS: ENOXAPARIN 40 MG/0.4 ML SYRINGE SQ SCH (07:53)
[2017-06-22] MEDS: CARVEDILOL 3.125 MG TAB PO SCH ×2 (07:54→17:14)
[2017-06-22] MEDS: MAGNESIUM OXIDE 400 MG TAB PO SCH ×2 (07:54→20:04)
[2017-06-22] MEDS: CHOLECALCIFEROL 1,000 UNIT TAB PO SCH ×2 (07:55→20:05)
[2017-06-22] MEDS: PREGABALIN 50 MG CAP PO SCH ×2 (08:00→20:07)
[2017-06-22] MEDS: ASPIRIN 81 MG PO SCH (08:12)
[2017-06-22] MEDS ORDERED: ERGOCALCIFEROL 50,000 UNIT CAP PO SCH (09:00)
--- NOTE | 2017-06-22 09:42 | P.PN ---
Subjective Progress Note Date: 06/22/17 The patient was very drowsy this morning, though arousable. He still appeared to be mildly confused. Objective - Vital Signs Vital signs: Vital Signs Temp 97.7 F 06/22/17 07:00 Pulse 58 L 06/22/17 07:00 Resp 16 06/22/17 07:00 BP 164/88 06/22/17 07:00 Pulse Ox 98 06/22/17 07:00 Intake & Output 06/21/17 06/22/17 06/22/17 18:59 06:59 18:59 Intake Total 780 Output Total 550 Balance 230 Weight 161.025 kg Intake: IV 100 Levofloxacin 500Mg-D5w 100 Pmx 500 mg In Dextrose/ Water 1 100ml.bag @ 100 mls/hr IVPB Q24H [facility] Rx#: [id number] Oral 680 Output: Urine 550 Other: Voiding Method Urinal Urinal # Voids 3 2 - Constitutional General appearance: Present: no acute distress - EENT Eyes: Present: PERRLA ENT: Present: hearing grossly normal, normal oropharynx - Respiratory Respiratory: left: diminished - Cardiovascular Rhythm: regular Heart sounds: normal: S1, S2 - Gastrointestinal General gastrointestinal: Present: normal bowel sounds, soft - Integumentary Integumentary: Present: normal - Neurologic Neurologic: Present: CNII-XII intact - Musculoskeletal Musculoskeletal: Present: generalized weakness, strength equal bilaterally - Labs CBC & Chem 7: 06/21/17 06:54 06/21/17 06:54 Labs: Microbiology - Last 24 Hours (Table) 06/20/17 07:55 Urine Culture - Final Urine,Voided 06/20/17 13:47 Blood Culture - Preliminary Blood No Growth after 24 hours Assessment and Plan (1) Generalized weakness Narrative/Plan: This is persistent, with mild improvement with hydration. No focal neurologic deficit noted otherwise. I discussed the case with nursing, as well as with the patient's . She continues to be quite confused and agitated at night. During the daytime he is possibly slightly improved compared to at home. If mental status has not shown significant improvement despite correction of calcium,, MRI of the brain will be repeated Current Visit: Yes Status: Acute Priority: High Code(s): R53.1 - WEAKNESS SNOMED Code(s): 02425061 (2) Non-small cell lung cancer (NSCLC) Current Visit: No Status: Chronic Priority: High Code(s): C34.90 - MALIGNANT NEOPLASM OF UNSP PART OF UNSP BRONCHUS OR LUNG SNOMED Code(s): 095443747 (3) Hypercalcemia of malignancy Narrative/Plan: Patient is status post Zometa. He is also receiving IV hydration. Check calcium today. Current Visit: Yes Status: Acute Code(s): E83.52 - HYPERCALCEMIA SNOMED Code(s): 20671271
[2017-06-22 10:50] LABS: Anion Gap 8 mmol/L; Blood Urea Nitrogen 10 mg/dL (9-20); Calcium 11.1 mg/dL (8.4-10.2); Carbon Dioxide 28 mmol/L (22-30); Chloride 101 mmol/L (98-107); Glucose 119 mg/dL (74-99); Potassium 3.7 mmol/L (3.5-5.1); Sodium 137 mmol/L (137-145)
--- NOTE | 2017-06-22 12:02 | P.PN ---
Subjective Progress Note Date: 06/22/17 Principal diagnosis: Stage IV squamous cell lung cancer, loculated Left pleural effusion. Vernon is a 72-year-old male patient past medical history of stage IV squamous cell lung cancer, status post chemotherapy, presently on Opdivo, was brought to the ED per EMS and 06/20/2017 at 6:00 in the morning with complaints of progressive weakness, falls, and hematuria. He is currently being treated for a urinary tract infection, did have a low-grade fever at home, but denied any fever or chills. His primary care physician prescribed Bactrim for his UTI. Other medical history includes coronary artery disease, diabetes mellitus, hyperlipidemia, [place], hypothyroidism, neuropathy. His chest x-ray on 06/20/2017 showed stable near complete opacification of the left hemothorax from the known large left pleural effusion, silhouette a pulmonary mass and atelectasis. The right lung was clear. This was compared to the previous chest x-ray on 2016. Previously in March, cardiothoracic surgery had seen the patient in consult for the placement of Pleurx catheter for his malignant pleural effusion, which was likely to recur. Patient had refused a Pleurx catheter at that time, stating that he was told by Dr. Medina to not let anybody place one in his chest. Patient had a ultrasound-guided thoracentesis on 05/02/2017 with a drainage of only 95 mL of pleural fluid, the effusion itself was found to be very loculated, which would also preclude placement of any long-term pleural catheters. Lab work shows no evidence of leukocytosis, his WBC is within normal limits at 7.9, hemoglobin is 8.3, INR is 1.3, no electrolyte abnormality , renal profile is within normal limits with BUN of 15, and creatinine 0.90. Patient was found to have lactic acidosis with a lactic acid of 3.6, elevated calcium of 12, troponin was negative 1, proBNP was 1640, urinalysis showed trace protein, large amount of blood, negative nitrite and negative leukocyte esterase, urine WBC and mucus were positive. Patient not complaining of any acute respiratory distress, his respirations are shallow but nonlabored. His oxygenation is stable, on 2 L per nasal cannula he is satting 96%. He is pale and weak, but in no acute distress, resting in bed, with his spouse at the bedside. He did receive fluid resuscitation with 1 L of 0.9 normal saline, and his maintenance IV fluids were increased to 100 ML per hour, and subsequently his lactic acid did decrease to 1.0. We are seeing him in consultation for the large left pleural effusion. Reevaluated today on 06/21/2017, patient remained generally weak, receiving treatment for slightly elevated calcium/hypercalcemia, reviewed the results of the ultrasound of the chest with him and his , and felt that the fluid is loculated, hence will not recommend thoracentesis, and will not recommend decortication. It is best to leave the effusion alone as it is for now. Labs were reviewed hemoglobin is 8.3, basic metabolic profile is normal, potassium is down to 11.6. Reevaluated today on 06/22/2017, patient was confused apparently last night, less confused this morning, feeling well, denies any shortness of breath, but he feels generally weak.seen by oncology, MRI of the brain is being considered the patient continues to have confusion episodes.urine cultures are negative so far.calcium is 11.1 today. Objective - Vital Signs Vital signs: Vital Signs Temp 97.7 F 06/22/17 07:00 Pulse 58 L 06/22/17 07:00 Resp 16 06/22/17 07:00 BP 164/88 06/22/17 07:00 Pulse Ox 98 06/22/17 07:00 Intake & Output 06/21/17 06/22/17 06/22/17 18:59 06:59 18:59 Intake Total 780 Output Total 550 Balance 230 Weight 161.025 kg Intake: IV 100 Levofloxacin 500Mg-D5w 100 Pmx 500 mg In Dextrose/ Water 1 100ml.bag @ 100 mls/hr IVPB Q24H [facility] Rx#: [id number] Oral 680 Output: Urine 550 Other: Voiding Method Urinal Urinal Toilet Urinal Incontinent # Voids 3 2 - Exam GENERAL EXAM: Alert, 72-year-old white male, pale, weak, but in no apparent distress HEAD: Normocephalic/atraumatic. EYES: Normal reaction of pupils, equal size. Conjunctiva pink, sclera white. NOSE: Clear with pink turbinates. THROAT: No erythema or exudates. NECK: No masses, no JVD, no thyroid enlargement, no adenopathy. CHEST: No chest wall deformity. Symmetrical expansion. LUNGS: Equal air entry with no crackles, wheeze, rhonchi. Lung sounds are diminished, more so on the left CVS: Regular rate and rhythm, normal S1 and S2, no gallops, no murmurs, no rubs ABDOMEN: Soft, nontender. No hepatosplenomegaly, normal bowel sounds, no guarding or rigidity. EXTREMITIES: No clubbing, no edema, no cyanosis, 2+ pulses and upper and lower extremities. MUSCULOSKELETAL: Muscle strength and tone normal. SPINE: No scoliosis or deformity SKIN: No rashes CENTRAL NERVOUS SYSTEM: Alert and oriented -3. No focal deficits, tone is normal in all 4 extremities. PSYCHIATRIC: Alert and oriented -3. Appropriate affect. Intact judgment and insight. - Labs CBC & Chem 7: 06/21/17 06:54 06/22/17 10:19 Labs: Abnormal Lab Results - Last 24 Hours (Table) 06/22/17 Range/Units 10:19 Glucose 119 H (74-99) mg/dL Calcium 11.1 H (8.4-10.2) mg/dL Microbiology - Last 24 Hours (Table) 06/20/17 07:55 Urine Culture - Final Urine,Voided 06/20/17 13:47 Blood Culture - Preliminary Blood No Growth after 24 hours Assessment and Plan Assessment: #1. Acute sepsis, secondary to acute urinary tract infection. Patient presented with worsening weakness, falls, hematuria. Has been undergoing outpatient treatment for UTI with a course of Bactrim. however the cultures are negative including blood and urine so far. #2. Lactic acidosis, secondary to the above, responded well to IV fluid resuscitation. Initial lactic acid of 3.6 on admission, subsequently came down to 1.0 after IV fluids #3. Large left pleural effusion, malignant, which was present during previous hospitalizations, loculated. Patient underwent ultrasound-guided thoracentesis on 05/02/2017 with the drainage of only 95 mL of pleural fluid. Had previously refused Pleurx catheter placement, but the loculation of the pleural fluid would not allow successful placement of the Pleurx catheter anyway. Patient is not having any acute oxygenation issues or increased dyspnea related to this effusion. Repeat ultrasound of the chest on 06/20/2017 was ordered #4. Generalized weakness, falls due to acute UTI with sepsis, and multiple comorbidities, including advanced squamous cell carcinoma with metastasis #5. 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 Coronary artery disease, with previous [place], PCI and stenting, coronary artery bypass grafting #7. Chronic anemia of chronic disease #8. Back surgery with fusion and laminectomy #9. History of bariatric surgery Recommendation: Continue present supportive care measures, no plans to do thoracentesis or Pleurx catheter placement, it is best to leave the effusion alone for now, the risks outweigh the benefits of any intervention. discussed with the today the findings on the urinary cultures, patient may eventually require MRI for further evaluation of his confusion, that would be a bit of concern about possible metastatic disease to the brain. Time with Patient: Less than 30
--- NOTE | 2017-06-22 13:26 | P.PN ---
Subjective Vernon Crouch is a 72-year-old male, patient of Dr Joanna Hernandez, with a known history of stage IV lung cancer who was brought in by EMS this morning for progressively worsening weakness. He has had 2 falls the last two weeks and this morning was found on the floor by paramedics after family called on the patient became weak after walking back from the bathroom and he became weak and labs helped down to the floor. He also is had some blood in his urine. He was seen by his primary care physician and is being treated for urinary tract infection with a course of Bactrim. Per paramedics he had a temporal scan of 99.1. Patient denies any fevers or chills at home no sweats no overt cough. The patient is a somewhat poor historian. Chest x-ray in the emergency room revealed evidence of near complete opacification of the left hemithorax with large pleural effusion. Patient has a known history of lung cancer followed by Dr. Medina his last chemotherapy was 6 weeks ago. on 06/21/2017, patient is weak, receiving treatment for slightly elevated calcium /hypercalcemia, pulmonary are not recommending thoracentesis at this time. Patient had hematuria urine culture is still pending he is receiving IV Levaquin and is feeling better on 06/22/2017 over the night patient had severe shortness of breath, he had evidence of fluid overload after receiving 2 units of red blood cells, received 2 doses of IV Lasix 40 mg, however his oxygen requirement went up to 15 L high flow oxygen, he was having significant shortness of breath, was transferred to ICU and Dr. Pinto was consulted Objective - Vital Signs Vital signs: Vital Signs Temp 97.7 F 06/22/17 07:00 Pulse 58 L 06/22/17 07:00 Resp 16 06/22/17 07:00 BP 164/88 06/22/17 07:00 Pulse Ox 98 06/22/17 07:00 Intake & Output 06/21/17 06/22/17 06/22/17 18:59 06:59 18:59 Intake Total 780 Output Total 550 Balance 230 Weight 161.025 kg Intake: IV 100 Levofloxacin 500Mg-D5w 100 Pmx 500 mg In Dextrose/ Water 1 100ml.bag @ 100 mls/hr IVPB Q24H [facility] Rx#: [id number] Oral 680 Output: Urine 550 Other: Voiding Method Urinal Urinal Toilet Urinal Incontinent # Voids 3 2 - Exam In general patient is alert responsive in no apparent distress HEENT head normocephalic and atraumatic Neck is supple no JVD no goiter no lymphadenopathy Chest exam reveals a few scattered crackles in both bases no wheezing, absent respiratory sounds on the left Cardiac exam reveals regular heart sounds S1 and S2 no gallops no murmurs Abdomen is soft nontender no organomegaly was normal bowel sounds Extremity exam reveals minimal edema no cyanosis or clubbing Neurological examination reveals no gross focal deficit - Labs CBC & Chem 7: 06/21/17 06:54 06/22/17 10:19 Labs: Abnormal Lab Results - Last 24 Hours (Table) 06/22/17 Range/Units 10:19 Glucose 119 H (74-99) mg/dL Calcium 11.1 H (8.4-10.2) mg/dL Microbiology - Last 24 Hours (Table) 06/20/17 07:55 Urine Culture - Final Urine,Voided 06/20/17 13:47 Blood Culture - Preliminary Blood No Growth after 24 hours Assessment and Plan Plan: #1 severe generalized weakness was multiple falls #2 lactic acidosis, improved #3 urinary tract infection, patient is receiving IV Levaquin and is improving awaiting urine culture #4 underlying history of lung cancer #5 left pleural effusion with near complete opacification of the left lung, no plans for thoracentesis per pulmonary at this time #6 previous history of coronary artery disease, with history of coronary artery bypass graft surgery #7 previous history of herniated disc with previous laminectomy #8 acute hypoxic respiratory failure quieting transfer to ICU and high flow oxygen possible bilateral pneumonia patient was started on cefepime and vancomycin #9 CODE STATUS was changed to no code At this time patient is admitted to medical floor Will obtain urine culture and blood culture Will give IV fluid Patient is now complaining of diarrhea Will obtain stools for C. diff Consultation for oncology was initiated Will consult pulmonary in that regard to pleural effusion and lung cancer Physical therapy and occupational therapy in that regard to extreme weakness Prognosis is guarded will follow closely
[2017-06-22] MEDS: LEVOFLOXACIN 500MG-D5W PMX 500 MG in DEXTROSE/WATER 1 100ML.BAG IVPB SCH (13:28)
--- NOTE | 2017-06-22 13:55 | P.PN ---
Subjective Vernon Crouch is a 72-year-old male, patient of Dr Joanna Hernandez, with a known history of stage IV lung cancer who was brought in by EMS this morning for progressively worsening weakness. He has had 2 falls the last two weeks and this morning was found on the floor by paramedics after family called on the patient became weak after walking back from the bathroom and he became weak and labs helped down to the floor. He also is had some blood in his urine. He was seen by his primary care physician and is being treated for urinary tract infection with a course of Bactrim. Per paramedics he had a temporal scan of 99.1. Patient denies any fevers or chills at home no sweats no overt cough. The patient is a somewhat poor historian. Chest x-ray in the emergency room revealed evidence of near complete opacification of the left hemithorax with large pleural effusion. Patient has a known history of lung cancer followed by Dr. Medina his last chemotherapy was 6 weeks ago. on 06/21/2017, patient is weak, receiving treatment for slightly elevated calcium /hypercalcemia, pulmonary are not recommending thoracentesis at this time. Patient had hematuria urine culture is still pending he is receiving IV Levaquin and is feeling better on 06/22/2017 patient clear is alert and oriented was confused last night, he states he is feeling well, denies any shortness of breath. Denies any chest pain complaining of generalized weakness otherwise no complaints . Per oncology , MRI of the brain is considered the patient continues to have confusion episodes. urine cultures are negative so far.calcium is 11.1 today. Objective - Vital Signs Vital signs: Vital Signs Temp 97.7 F 06/22/17 07:00 Pulse 58 L 06/22/17 07:00 Resp 16 06/22/17 07:00 BP 164/88 06/22/17 07:00 Pulse Ox 98 06/22/17 07:00 Intake & Output 06/21/17 06/22/17 06/22/17 18:59 06:59 18:59 Intake Total 780 Output Total 550 Balance 230 Weight 161.025 kg Intake: IV 100 Levofloxacin 500Mg-D5w 100 Pmx 500 mg In Dextrose/ Water 1 100ml.bag @ 100 mls/hr IVPB Q24H [facility] LICENSE OF [facility] Rx#: [id number] Oral 680 Output: Urine 550 Other: Voiding Method Urinal Urinal Toilet Urinal Incontinent # Voids 3 2 - Exam In general patient is alert responsive in no apparent distress HEENT head normocephalic and atraumatic Neck is supple no JVD no goiter no lymphadenopathy Chest exam reveals a few scattered crackles in both bases no wheezing, absent respiratory sounds on the left Cardiac exam reveals regular heart sounds S1 and S2 no gallops no murmurs Abdomen is soft nontender no organomegaly was normal bowel sounds Extremity exam reveals minimal edema no cyanosis or clubbing Neurological examination reveals no gross focal deficit - Labs CBC & Chem 7: 06/21/17 06:54 06/22/17 10:19 Labs: Abnormal Lab Results - Last 24 Hours (Table) 06/22/17 Range/Units 10:19 Glucose 119 H (74-99) mg/dL Calcium 11.1 H (8.4-10.2) mg/dL Microbiology - Last 24 Hours (Table) 06/20/17 07:55 Urine Culture - Final Urine,Voided 06/20/17 13:47 Blood Culture - Preliminary Blood No Growth after 24 hours Assessment and Plan Plan: #1 severe generalized weakness was multiple falls #2 lactic acidosis, improved #3 urinary tract infection, patient is receiving IV Levaquin and is improving awaiting urine culture #4 underlying history of lung cancer #5 left pleural effusion with near complete opacification of the left lung, no plans for thoracentesis per pulmonary at this time #6 previous history of coronary artery disease, with history of coronary artery bypass graft surgery #7 previous history of herniated disc with previous laminectomy At this time patient is admitted to medical floor Will obtain urine culture and blood culture Will give IV fluid Patient is now complaining of diarrhea Will obtain stools for C. diff Consultation for oncology was initiated Will consult pulmonary in that regard to pleural effusion and lung cancer Physical therapy and occupational therapy in that regard to extreme weakness Prognosis is guarded will follow closely
[2017-06-22] MEDS: AMITRIPTYLINE HCL 25 MG TAB PO SCH (20:04)
[2017-06-22] MEDS: ATORVASTATIN 20 MG TAB PO SCH (20:04)
[2017-06-22] MEDS: oxyCODONE-APAP 10-325MG 1 EACH TAB PO PRN (20:04)
[2017-06-22] MEDS: metFORMIN 500 MG TAB PO SCH (20:05)
[2017-06-22] MEDS: POLYETHYLENE GLYCOL 3350 17 GM POWD.PACK PO SCH (20:05)
[2017-06-23] MEDS: LEVOTHYROXINE 50 MCG TAB PO SCH (06:05)
[2017-06-23 08:50] LABS: Anion Gap 8 mmol/L; Blood Urea Nitrogen 11 mg/dL (9-20); Calcium 10.9 mg/dL (8.4-10.2); Carbon Dioxide 32 mmol/L (22-30); Chloride 100 mmol/L (98-107); Glucose 99 mg/dL (74-99); Potassium 4.1 mmol/L (3.5-5.1); Sodium 140 mmol/L (137-145)
[2017-06-23] MEDS: ENOXAPARIN 40 MG/0.4 ML SYRINGE SQ SCH (08:53)
[2017-06-23] MEDS: CHOLECALCIFEROL 1,000 UNIT TAB PO SCH ×2 (08:54→22:04)
[2017-06-23] MEDS: MAGNESIUM OXIDE 400 MG TAB PO SCH ×2 (08:54→22:05)
[2017-06-23] MEDS: ASPIRIN 81 MG PO SCH (08:54)
[2017-06-23] MEDS: CARVEDILOL 3.125 MG TAB PO SCH ×2 (08:54→16:52)
[2017-06-23 08:55] LABS: Anisocytosis Slight; Basophils % (A) 0 %; Eosinophils # (A) 0.4 k/uL (0-0.7); Eosinophils % (A) 5 %; HCT 27.9 % (39.0-53.0); HGB 8.3 gm/dL (13.0-17.5); Hypochromasia Marked; Lymphocytes # (A) 0.8 k/uL (1.0-4.8); Lymphocytes % (A) 10 %; MCH 25.2 pg (25.0-35.0); MCHC 29.8 g/dL (31.0-37.0); MCV 84.6 fL (80.0-100.0); Mean Platelet Volume 8.9; Monocytes # (A) 0.5 k/uL (0-1.0); Monocytes % (A) 6 %; Neutrophils # (A) 6.4 k/uL (1.3-7.7); Neutrophils % (A) 78 %; Platelet Count 225 k/uL (150-450); RDW 18.5 % (11.5-15.5); WBC 8.2 k/uL (3.8-10.6)
[2017-06-23] MEDS: PREGABALIN 50 MG CAP PO SCH ×2 (08:55→22:05)
[2017-06-23] MEDS: oxyCODONE-APAP 10-325MG 1 EACH TAB PO PRN ×2 (10:55→22:05)
--- NOTE | 2017-06-23 12:09 | P.PN ---
Subjective Progress Note Date: 06/23/17 Vernon Crouch is a 72-year-old male, patient of Dr Joanna Hernandez, with a known history of stage IV lung cancer who was brought in by EMS this morning for progressively worsening weakness. He has had 2 falls the last two weeks and this morning was found on the floor by paramedics after family called on the patient became weak after walking back from the bathroom and he became weak and labs helped down to the floor. He also is had some blood in his urine. He was seen by his primary care physician and is being treated for urinary tract infection with a course of Bactrim. 06/23/2017 discussed case with patient's at bedside. According to her and the patient. Patient is less confused today. He is currently alert and orientated to 3. He was able to work with physical therapy. He has no new complaints. Denies any chest pain or shortness of breath. Denies any nausea or vomiting. Denies any bowel movement changes or urinary symptoms. He is no longer reporting any hematuria. Reports his chronic pain is controlled. Objective - Vital Signs Vital signs: Vital Signs Temp 98.3 F 06/23/17 07:00 Pulse 84 06/23/17 08:00 Resp 16 06/23/17 08:00 BP 110/56 06/23/17 07:00 Pulse Ox 97 06/23/17 07:00 Intake & Output 06/22/17 06/23/17 06/23/17 18:59 06:59 18:59 Intake Total 1000 Output Total 550 Balance 450 Weight 161.025 kg Intake: IV 100 Levofloxacin 500Mg-D5w 100 Pmx 500 mg In Dextrose/ Water 1 100ml.bag @ 100 mls/hr IVPB Q24H [facility] Rx#: [id number] Oral 900 Output: Urine 550 Other: Voiding Method Toilet Toilet Toilet Urinal Urinal Urinal Incontinent Incontinent Incontinent # Voids 4 2 # Bowel Movements 1 - Exam Head normocephalic Neck supple Lungs clear to auscultation bilaterally no wheezing or crackles Heart regular rate and rhythm S1-S2, no rub or gallop Abdomen is soft nontender nondistended positive bowel sounds no hepatosplenomegaly Extremities no edema Neuro alert and orientated to 3 - Labs CBC & Chem 7: 06/23/17 07:12 06/23/17 07:12 Labs: Abnormal Lab Results - Last 24 Hours (Table) 06/23/17 06/23/17 Range/Units 07:12 07:12 RBC 3.30 L (4.30-5.90) m/uL Hgb 8.3 L (13.0-17.5) gm/dL Hct 27.9 L (39.0-53.0) % MCHC 29.8 L (31.0-37.0) g/dL RDW 18.5 H (11.5-15.5) % Lymphocytes # 0.8 L (1.0-4.8) k/uL Carbon Dioxide 32 H (22-30) mmol/L Calcium 10.9 H (8.4-10.2) mg/dL Microbiology - Last 24 Hours (Table) 06/20/17 13:47 Blood Culture - Preliminary Blood No Growth after 48 hours Assessment and Plan Assessment: 1. Severe generalized weakness and multiple falls likely related to patient's UTI and medical comorbidities 2. Altered mental status changes possibly a metabolic encephalopathy related to UTI, dehydration and hypercalcemia. Patient's symptoms appear to be improving he is now alert and orientated to 3. Computed tomography scan of the brain showed no acute changes 3. Lactic acidosis improved with IV fluids 4. Large Left pleural effusion, malignant, which was present during previous hospitalizations, loculated. Patient seen by pulmonary service. No plans for thoracentesis or Pleurx catheter. Risk outweighs the benefit of intervention per pulmonary service 5. Stage IV's, cell carcinoma of the lungs. Status post chemotherapy. Followed by oncology 6. Anemia of chronic disease 7. Coronary artery disease with previous AL and cardiac stenting and coronary artery bypass grafting 8. Hypercalcemia of malignancy: Calcium level trending down to 10.9. Oncology following. Patient did receive Zometa 9. UTI on Levaquin. Urine culture negative I performed an examination of the patient and discussed their management with the physician Commodity Manager. I have reviewed the Physician Commodity Manager's notes and agree with the documented findings and plan of care Anticipate discharge to possible ECF tomorrow
--- NOTE | 2017-06-23 13:57 | CDI ---
Last Revision, May 2017 Documentation Clarification Form Date: 06/23/2017 1:14:00 PM From: Christina Shin RN, CCDS Admit Date: 06/20/2017 8:53:00 AM Patient Name: Vernon Crouch Visit Number: [id number] Discharge Date: ATTENTION: The Clinical Documentation Specialists (CDI) and [facility] Coding Staff appreciate your assistance in clarifying documentation. Please respond to the clarification below the line at the bottom and electronically sign. The CDI & [facility] Coding staff will review the response and follow-up if needed. Please note: Queries are made part of the Legal Health Record. If you have any questions, please contact the author of this message via ITS. Dr. Saurabh Hendricks/Nini Lu PA-C 06/20/[address] Pinto ongoing progress notes has sepsis due to UTI. 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 He was reported to have a low- grade fever at home, but denied any fever or chills. WBC/Left Shift 7.9 Lactic acid: 3.6 Blood cultures: Negative to date Vitals signs on admission: 107/55 92 17 98.2 96 % 2/L NC Other Clinical Indicators: 06/22/17 progress notes reports confusion last night. Treatment IV Fluid Blood transfusion Levaquin IV Monitor Labs Antibiotics: IV Bolus: Other: In your professional opinion, please clarify if these findings signify one of the following conditions, whether the condition is POA, and cause, if known: Condition Sepsis ruled in Sepsis ruled out Other, please specify Unable to determine Present on Admission: Yes No Identify the (suspected) organism Link or clarify if there is associated (due to/with): Organ failure Shock SIRS Criteria2 or more of the following may indicate SIRS: Temperature < 96.8F (36C) or > 101.0F (38.3C) Heart Rate > 90 bpm Respiratory Rate > 20 breaths/min or PaCO2 < 32 mmHg White Blood Cell Count > 12,000 or < 4,000 cells/mm3 or > 10% bands Lactate >2.0 mmol/L (>4.0 is equivalent to septic shock) Please continue to document in your progress notes and discharge summary in order to capture severity of illness and risk of mortality. Include clinical findings that support your diagnosis. no sepsis present MTDD
[2017-06-23] MEDS: LEVOFLOXACIN 500MG-D5W PMX 500 MG in DEXTROSE/WATER 1 100ML.BAG IVPB SCH (14:06)
--- NOTE | 2017-06-23 16:09 | P.PN ---
Subjective Progress Note Date: 06/23/17 Principal diagnosis: Stage IV squamous cell lung cancer, loculated left pleural effusion Vernon is a 72-year-old male patient past medical history of stage IV squamous cell lung cancer, status post chemotherapy, presently on Opdivo, was brought to the ED per EMS and 06/20/2017 at 6:00 in the morning with complaints of progressive weakness, falls, and hematuria. He is currently being treated for a urinary tract infection, did have a low-grade fever at home, but denied any fever or chills. His primary care physician prescribed Bactrim for his UTI. Other medical history includes coronary artery disease, diabetes mellitus, hyperlipidemia, MA, hypothyroidism, neuropathy. His chest x-ray on 06/20/2017 showed stable near complete opacification of the left hemothorax from the known large left pleural effusion, silhouette a pulmonary mass and atelectasis. The right lung was clear. This was compared to the previous chest x-ray on 2016. Previously in March, cardiothoracic surgery had seen the patient in consult for the placement of Pleurx catheter for his malignant pleural effusion, which was likely to recur. Patient had refused a Pleurx catheter at that time, stating that he was told by Dr. Medina to not let anybody place one in his chest. Patient had a ultrasound-guided thoracentesis on 05/02/2017 with a drainage of only 95 mL of pleural fluid, the effusion itself was found to be very loculated, which would also preclude placement of any long-term pleural catheters. Lab work shows no evidence of leukocytosis, his WBC is within normal limits at 7.9, hemoglobin is 8.3, INR is 1.3, no electrolyte abnormality , renal profile is within normal limits with BUN of 15, and creatinine 0.90. Patient was found to have lactic acidosis with a lactic acid of 3.6, elevated calcium of 12, troponin was negative 1, proBNP was 1640, urinalysis showed trace protein, large amount of blood, negative nitrite and negative leukocyte esterase, urine WBC and mucus were positive. Patient not complaining of any acute respiratory distress, his respirations are shallow but nonlabored. His oxygenation is stable, on 2 L per nasal cannula he is satting 96%. He is pale and weak, but in no acute distress, resting in bed, with his spouse at the bedside. He did receive fluid resuscitation with 1 L of 0.9 normal saline, and his maintenance IV fluids were increased to 100 ML per hour, and subsequently his lactic acid did decrease to 1.0. We are seeing him in consultation for the large left pleural effusion. Reevaluated today on 06/21/2017, patient remained generally weak, receiving treatment for slightly elevated calcium/hypercalcemia, reviewed the results of the ultrasound of the chest with him and his , and felt that the fluid is loculated, hence will not recommend thoracentesis, and will not recommend decortication. It is best to leave the effusion alone as it is for now. Labs were reviewed hemoglobin is 8.3, basic metabolic profile is normal, potassium is down to 11.6. Reevaluated today on 06/22/2017, patient was confused apparently last night, less confused this morning, feeling well, denies any shortness of breath, but he feels generally weak.seen by oncology, MRI of the brain is being considered the patient continues to have confusion episodes.urine cultures are negative so far.calcium is 11.1 today. On 06/23/2017 patient seen in follow-up. Denies any acute distress, well signs are stable, afebrile, he is currently on room air with O2 sat at 97%. Denies any worsening shortness of breath. Today's lab work has been reviewed, the PVCs within normal limits at 8.2, hemoglobin stable at 8.3, sodium is 140, potassium is 4.1, carbon dioxide is 32, BUN is 11, creatinine 0.74. Patient is being treated for acute UTI, blood and urine cultures are no growth. Left pleural effusion is loculated and chronic in nature, no plans for intervention at this time. Discharge planning is in progress for placement to subacute rehab , patient is requesting placement closer to his residence. Objective - Vital Signs Vital signs: Vital Signs Temp 98.0 F 06/23/17 15:00 Pulse 85 06/23/17 15:00 Resp 18 06/23/17 15:00 BP 84/50 06/23/17 15:00 Pulse Ox 97 06/23/17 15:00 Intake & Output 06/22/17 06/23/17 06/23/17 18:59 06:59 18:59 Intake Total 1000 Output Total 550 Balance 450 Weight 161.025 kg Intake: IV 100 Levofloxacin 500Mg-D5w 100 Pmx 500 mg In Dextrose/ Water 1 100ml.bag @ 100 mls/hr IVPB Q24H [facility] Rx#: [id number] Oral 900 Output: Urine 550 Other: Voiding Method Toilet Toilet Toilet Urinal Urinal Urinal Incontinent Incontinent Incontinent # Voids 4 2 2 # Bowel Movements 1 - Exam GENERAL EXAM: Alert, 72-year-old white male, pale, weak, but in no apparent distress HEAD: Normocephalic/atraumatic. EYES: Normal reaction of pupils, equal size. Conjunctiva pink, sclera white. NOSE: Clear with pink turbinates. THROAT: No erythema or exudates. NECK: No masses, no JVD, no thyroid enlargement, no adenopathy. CHEST: No chest wall deformity. Symmetrical expansion. LUNGS: Equal air entry with no crackles, wheeze, rhonchi. Lung sounds are diminished, more so on the left CVS: Regular rate and rhythm, normal S1 and S2, no gallops, no murmurs, no rubs ABDOMEN: Soft, nontender. No hepatosplenomegaly, normal bowel sounds, no guarding or rigidity. EXTREMITIES: No clubbing, no edema, no cyanosis, 2+ pulses and upper and lower extremities. MUSCULOSKELETAL: Muscle strength and tone normal. SPINE: No scoliosis or deformity SKIN: No rashes CENTRAL NERVOUS SYSTEM: Alert and oriented -3. No focal deficits, tone is normal in all 4 extremities. PSYCHIATRIC: Alert and oriented -3. Appropriate affect. Intact judgment and insight. - Labs CBC & Chem 7: 06/23/17 07:12 06/23/17 07:12 Labs: Abnormal Lab Results - Last 24 Hours (Table) 06/23/17 06/23/17 Range/Units 07:12 07:12 RBC 3.30 L (4.30-5.90) m/uL Hgb 8.3 L (13.0-17.5) gm/dL Hct 27.9 L (39.0-53.0) % MCHC 29.8 L (31.0-37.0) g/dL RDW 18.5 H (11.5-15.5) % Lymphocytes # 0.8 L (1.0-4.8) k/uL Carbon Dioxide 32 H (22-30) mmol/L Calcium 10.9 H (8.4-10.2) mg/dL Microbiology - Last 24 Hours (Table) 06/20/17 13:47 Blood Culture - Preliminary Blood No Growth after 48 hours Assessment and Plan Plan: Assessment: #1. Acute sepsis, secondary to acute urinary tract infection. Patient presented with worsening weakness, falls, hematuria. Has been undergoing outpatient treatment for UTI with a course of Bactrim. #2. Lactic acidosis, secondary to the above, responded well to IV fluid resuscitation. Initial lactic acid of 3.6 on admission, subsequently came down to 1.0 after IV fluids #3. Large left pleural effusion, malignant, which was present during previous hospitalizations, loculated. Patient underwent ultrasound-guided thoracentesis on 05/02/2017 with the drainage of only 95 mL of pleural fluid. Had previously refused Pleurx catheter placement, but the loculation of the pleural fluid would not allow successful placement of the Pleurx catheter anyway. Patient is not having any acute oxygenation issues or increased dyspnea related to this effusion. Repeat ultrasound of the chest on 06/20/2017 was ordered #4. Generalized weakness, falls due to acute UTI with sepsis, and multiple comorbidities, including advanced squamous cell carcinoma with metastasis #5. 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 Coronary artery disease, with previous MA, PCI and stenting, coronary artery bypass grafting #7. Chronic anemia of chronic disease #8. Back surgery with fusion and laminectomy #9. History of bariatric surgery Plan: Present medical treatment, continue treatment for the UTI. The left pleural effusion is loculated, no plans for placement of Pleurx catheter or thoracentesis at this time. She is planning is in progress for subacute rehab placement. From pulmonary standpoint patient is stable for discharge. I performed a history & physical examination of the patient and discussed their management with my nurse practitioner, Carie Perdomo. I reviewed the nurse practitioner's note and agree with the documented findings and plan of care. Lung sounds are diminished, more so on the left. The findings and the impression was discussed with the patient. I attest to the documentation by the nurse practitioner. Time with Patient: Less than 30
[2017-06-23] MEDS: ATORVASTATIN 20 MG TAB PO SCH (22:04)
[2017-06-23] MEDS: AMITRIPTYLINE HCL 25 MG TAB PO SCH (22:04)
[2017-06-23] MEDS: metFORMIN 500 MG TAB PO SCH (22:05)
[2017-06-23] MEDS: POLYETHYLENE GLYCOL 3350 17 GM POWD.PACK PO SCH (22:05)
[2017-06-24] MEDS: LEVOTHYROXINE 50 MCG TAB PO SCH (06:09)
[2017-06-24 07:00] LABS: Anisocytosis Slight; Basophils % (A) 0 %; Eosinophils # (A) 0.5 k/uL (0-0.7); Eosinophils % (A) 6 %; HCT 26.7 % (39.0-53.0); HGB 8.2 gm/dL (13.0-17.5); Hypochromasia Moderate; Lymphocytes # (A) 0.8 k/uL (1.0-4.8); Lymphocytes % (A) 11 %; MCH 25.1 pg (25.0-35.0); MCHC 30.8 g/dL (31.0-37.0); MCV 81.3 fL (80.0-100.0); Mean Platelet Volume 9.3; Microcytosis Slight; Monocytes # (A) 0.4 k/uL (0-1.0); Monocytes % (A) 5 %; Neutrophils # (A) 5.7 k/uL (1.3-7.7); Neutrophils % (A) 76 %; Platelet Count 247 k/uL (150-450); RBC 3.29 m/uL (4.30-5.90); RDW 18.2 % (11.5-15.5); WBC 7.5 k/uL (3.8-10.6)
[2017-06-24 07:16] LABS: ALT 24 U/L (21-72); AST 11 U/L (17-59); Albumin 2.7 g/dL (3.5-5.0); Alkaline Phosphatase 57 U/L (38-126); Anion Gap 5 mmol/L; Blood Urea Nitrogen 11 mg/dL (9-20); Calcium 10.5 mg/dL (8.4-10.2); Carbon Dioxide 32 mmol/L (22-30); Chloride 100 mmol/L (98-107); Glucose 106 mg/dL (74-99); Potassium 4.1 mmol/L (3.5-5.1); Sodium 137 mmol/L (137-145); Total Bilirubin 0.2 mg/dL (0.2-1.3); Total Protein 5.9 g/dL (6.3-8.2)
[2017-06-24] MEDS: oxyCODONE-APAP 10-325MG 1 EACH TAB PO PRN ×2 (08:19→13:26)
[2017-06-24] MEDS: ENOXAPARIN 40 MG/0.4 ML SYRINGE SQ SCH (08:39)
[2017-06-24] MEDS: CHOLECALCIFEROL 1,000 UNIT TAB PO SCH ×2 (08:39→20:39)
[2017-06-24] MEDS: MAGNESIUM OXIDE 400 MG TAB PO SCH ×2 (08:40→20:39)
[2017-06-24] MEDS: CARVEDILOL 3.125 MG TAB PO SCH ×2 (08:40→20:39)
[2017-06-24] MEDS: PREGABALIN 50 MG CAP PO SCH ×2 (08:40→20:42)
[2017-06-24] MEDS: ASPIRIN 81 MG PO SCH (08:40)
--- NOTE | 2017-06-24 11:36 | P.PN ---
Subjective Progress Note Date: 06/24/17 Principal diagnosis: hypercalcemia of malignancy Pt seen today in follow up, his mental status is improved, more alert and oriented, this is confirmed by his , pt is weak so he is going to participate in rehabilitation. He denies nausea, IMER or pain. He was able to ambulate in the room. Objective - Vital Signs Vital signs: Vital Signs Temp 96.5 F L 06/24/17 07:00 Pulse 88 06/24/17 08:00 Resp 18 06/24/17 08:00 BP 108/58 06/24/17 07:00 Pulse Ox 98 06/24/17 07:00 Intake & Output 06/23/17 06/24/17 06/24/17 18:59 06:59 18:59 Weight 161.025 kg Other: Voiding Method Toilet Toilet Toilet Urinal Urinal Incontinent Incontinent Incontinent # Voids 2 1 1 - Exam A&O x 3, NAD, respirations even and unlabored - Constitutional General appearance: Present: average body habitus, cooperative, no acute distress - EENT Eyes: Present: anicteric sclerae - Labs CBC & Chem 7: 06/24/17 06:45 06/24/17 06:45 Labs: Abnormal Lab Results - Last 24 Hours (Table) 06/24/17 06/24/17 Range/Units 06:45 06:45 RBC 3.29 L (4.30-5.90) m/uL Hgb 8.2 L (13.0-17.5) gm/dL Hct 26.7 L (39.0-53.0) % MCHC 30.8 L (31.0-37.0) g/dL RDW 18.2 H (11.5-15.5) % Lymphocytes # 0.8 L (1.0-4.8) k/uL Carbon Dioxide 32 H (22-30) mmol/L Glucose 106 H (74-99) mg/dL Calcium 10.5 H (8.4-10.2) mg/dL AST 11 L (17-59) U/L Total Protein 5.9 L (6.3-8.2) g/dL Albumin 2.7 L (3.5-5.0) g/dL Microbiology - Last 24 Hours (Table) 06/20/17 13:47 Blood Culture - Preliminary Blood No Growth after 72 hours Assessment and Plan (1) Hypercalcemia of malignancy Narrative/Plan: Pt was treated with bisphosphonate, hydrated and D3 supplement has been held. Ca++ 10.5 today, much improved since admit. Cont to hold D3 supplement. Current Visit: Yes Status: Acute Priority: High Code(s): E83.52 - HYPERCALCEMIA SNOMED Code(s): 44359074 (2) Generalized weakness Narrative/Plan: Due to confusion and weakness pt had prolonged bed rest, he is going to participate in rehabilitation for 1-2 weeks. Current Visit: Yes Status: Acute Priority: High Code(s): R53.1 - WEAKNESS SNOMED Code(s): 95001403 (3) Non-small cell lung cancer (NSCLC) Narrative/Plan: Pt does not have imaging evidence of malignancy recurrence though malignancy in the lung may not be able to be directly visualized due to treatment changes. Also, recurrent hypercalcemia is suspicious for paraneoplastic syndrome. Follow up will be scheduled with Dr. Ro for further plan of care after rehab. All of this was discussed with pt and and they verbalized understanding. Current Visit: No Status: Chronic Priority: High Code(s): C34.90 - MALIGNANT NEOPLASM OF UNSP PART OF UNSP BRONCHUS OR LUNG SNOMED Code(s): 670384888
--- NOTE | 2017-06-24 11:48 | P.DS ---
Providers Date of admission: 06/20/17 08:53 Expected date of discharge: 06/24/17 Attending physician: Saurabh Hendricks Consults: 06/20/17 08:54 Consult Physician Urgent Consulting Provider: Marilyn Ro Consult Reason/Comments: Lung cancer, generalized weakness Do you want consulting provider notified?: Yes 06/20/17 13:15 Consult Physician Routine Consulting Provider: Ida Pinto Consult Reason/Comments: pleural effusion Do you want consulting provider notified?: Yes Primary care physician: Joanna Hernandez [facility] Course: Discharge diagnosis 1. Severe generalized weakness and multiple falls likely related to patient's UTI and medical comorbidities 2. Altered mental status changes possibly a metabolic encephalopathy related to UTI, dehydration and hypercalcemia. Patient's symptoms appear to be improving he is now alert and orientated to 3. Computed tomography scan of the brain showed no acute changes 3. Lactic acidosis improved with IV fluids 4. Large Left pleural effusion, malignant, which was present during previous hospitalizations, loculated. Patient seen by pulmonary service. No plans for thoracentesis or Pleurx catheter. Risk outweighs the benefit of intervention per pulmonary service 5. Stage IV's, cell carcinoma of the lungs. Status post chemotherapy. Followed by oncology 6. Anemia of chronic disease 7. Coronary artery disease with previous CO and cardiac stenting and coronary artery bypass grafting 8. Hypercalcemia of malignancy: Calcium level trending down to 10.9. Oncology following. Patient did receive Zometa 9. UTI on Levaquin. Urine culture negative. Continue Levaquin for 5 more days Hospital course Vernon Crouch is a 72-year-old male, patient of Dr Joanna Hernandez, with a known history of stage IV lung cancer who was brought in by EMS this morning for progressively worsening weakness. He has had 2 falls the last two weeks and this morning was found on the floor by paramedics after family called on the patient became weak after walking back from the bathroom and he became weak and labs helped down to the floor. He also is had some blood in his urine. He was seen by his primary care physician and is being treated for urinary tract infection with a course of Bactrim. Patient was treated for UTI with Levaquin. There is no evidence of sepsis. Urine culture negative. We'll continue 5 more days of Levaquin. Hematuria has resolved. Possibly related to the UTI. Continue to monitor for any reoccurrence. Patient's weakness had improved with antibiotic treatment as well as IV fluids. Likely his confusion and weakness were related to UTI dehydration and his medical comorbidities. Hypercalcemia also contributing. Patient's confusion has improved. Computed tomography scan of the brain showed no acute changes. Hypercalcemia was also treated by oncology with the Zometa. Calcium level improving. Calcium level at discharge 10.5. Pulmonary and oncology services have cleared patient for discharge. He'll be discharged to [facility] for further rehabilitation. We'll have patient follow-up with his PCP and Dr. Ro in 1 week I performed an examination of the patient and discussed their management with the physician Supply Chain Analyst. I have reviewed the Physician Supply Chain Analyst's notes and agree with the documented findings and plan of care Patient Condition at Discharge: Stable Plan - Discharge Summary Discharge Rx Participant: No New Discharge Prescriptions: New Levofloxacin [Levaquin] 500 mg PO Q24H #5 tab Continue Atorvastatin [Lipitor] 20 mg PO HS Aspirin 81 mg PO DAILY Arabi-3 Fatty Acids/Fish Oil [Fish Oil 1,000 mg Softgel] 1 cap PO BID metFORMIN HCL [Glucophage] 500 mg PO HS Carvedilol [Coreg] 3.125 mg PO BID Levothyroxine Sodium [Synthroid] 50 mcg PO DAILY Lidocaine-Prilocaine Cream [Emla Cream 2.5%/2.5%] 1 applic TOPICAL DAILY PRN PRN Reason: PORT ACCESS Pregabalin [Lyrica] 150 mg PO BID Prochlorperazine [Compazine] 10 mg PO Q6H PRN PRN Reason: Nausea Amitriptyline HCl [Elavil] 25 mg PO HS #30 tab Magnesium Oxide [Mag-Ox] 800 mg PO BID Polyethylene Glycol 3350 [Miralax] 17 gm PO HS Nitroglycerin Sl Tabs [Nitrostat] 0.4 mg SUBLINGUAL Q5M PRN PRN Reason: Chest Pain oxyCODONE-APAP 10-325MG [Percocet 10-325 mg] 1 tab PO Q4H PRN #40 tab PRN Reason: Pain Discontinued Ergocalciferol [Vitamin D2 (DRISDOL)] 50,000 units PO BOTELLO Cholecalciferol [Vitamin D3] 1,000 unit PO BID Sulfamethox-Tmp 800-160Mg [Bactrim DS 800-160 mg] 1 tab PO Q12HR Discharge Medication List Aspirin 81 mg PO DAILY 08/09/14 [History] Atorvastatin [Lipitor] 20 mg PO HS 08/09/14 [History] Arabi-3 Fatty Acids/Fish Oil [Fish Oil 1,000 mg Softgel] 1 cap PO BID 09/28/14 [ History] metFORMIN HCL [Glucophage] 500 mg PO HS 04/06/15 [History] Carvedilol [Coreg] 3.125 mg PO BID 03/23/17 [History] Levothyroxine Sodium [Synthroid] 50 mcg PO DAILY 03/23/17 [History] Lidocaine-Prilocaine Cream [Emla Cream 2.5%/2.5%] 1 applic TOPICAL DAILY PRN [History] Pregabalin [Lyrica] 150 mg PO BID 03/23/17 [History] Prochlorperazine [Compazine] 10 mg PO Q6H PRN 03/23/17 [History] Amitriptyline HCl [Elavil] 25 mg PO HS #30 tab 03/28/17 [Rx] Magnesium Oxide [Mag-Ox] 800 mg PO BID 04/25/17 [History] Polyethylene Glycol 3350 [Miralax] 17 gm PO HS 04/25/17 [History] Nitroglycerin Sl Tabs [Nitrostat] 0.4 mg SUBLINGUAL Q5M PRN 06/20/17 [History] Levofloxacin [Levaquin] 500 mg PO Q24H #5 tab 06/24/17 [Rx] oxyCODONE-APAP 10-325MG [Percocet 10-325 mg] 1 tab PO Q4H PRN #40 tab 06/24/17 [ Rx] Follow up Appointment(s)/Referral(s): Rebecca Tripp DO [REFERRING] - 1 Week [facility] Visiting Nurse, [NON-STAFF] - Marilyn Ro MD [STAFF PHYSICIAN] - 1 Week Activity/Diet/Wound Care/Special Instructions: Diet: regular Activity: as tolerated Discharge patient to [facility] check CBC, CMP in 1 week Discharge Disposition: TRANSFER TO [facility]
--- NOTE | 2017-06-24 12:15 | P.PN ---
Subjective Progress Note Date: 06/24/17 Principal diagnosis: Stage IV squamous cell lung cancer, loculated left pleural effusion Vernon is a 72-year-old male patient past medical history of stage IV squamous cell lung cancer, status post chemotherapy, presently on Opdivo, was brought to the ED per EMS and 06/20/2017 at 6:00 in the morning with complaints of progressive weakness, falls, and hematuria. He is currently being treated for a urinary tract infection, did have a low-grade fever at home, but denied any fever or chills. His primary care physician prescribed Bactrim for his UTI. Other medical history includes coronary artery disease, diabetes mellitus, hyperlipidemia, NH, hypothyroidism, neuropathy. His chest x-ray on 06/20/2017 showed stable near complete opacification of the left hemothorax from the known large left pleural effusion, silhouette a pulmonary mass and atelectasis. The right lung was clear. This was compared to the previous chest x-ray on 2016. Previously in March, cardiothoracic surgery had seen the patient in consult for the placement of Pleurx catheter for his malignant pleural effusion, which was likely to recur. Patient had refused a Pleurx catheter at that time, stating that he was told by Dr. Medina to not let anybody place one in his chest. Patient had a ultrasound-guided thoracentesis on 05/02/2017 with a drainage of only 95 mL of pleural fluid, the effusion itself was found to be very loculated, which would also preclude placement of any long-term pleural catheters. Lab work shows no evidence of leukocytosis, his WBC is within normal limits at 7.9, hemoglobin is 8.3, INR is 1.3, no electrolyte abnormality , renal profile is within normal limits with BUN of 15, and creatinine 0.90. Patient was found to have lactic acidosis with a lactic acid of 3.6, elevated calcium of 12, troponin was negative 1, proBNP was 1640, urinalysis showed trace protein, large amount of blood, negative nitrite and negative leukocyte esterase, urine WBC and mucus were positive. Patient not complaining of any acute respiratory distress, his respirations are shallow but nonlabored. His oxygenation is stable, on 2 L per nasal cannula he is satting 96%. He is pale and weak, but in no acute distress, resting in bed, with his spouse at the bedside. He did receive fluid resuscitation with 1 L of 0.9 normal saline, and his maintenance IV fluids were increased to 100 ML per hour, and subsequently his lactic acid did decrease to 1.0. We are seeing him in consultation for the large left pleural effusion. Reevaluated today on 06/21/2017, patient remained generally weak, receiving treatment for slightly elevated calcium/hypercalcemia, reviewed the results of the ultrasound of the chest with him and his , and felt that the fluid is loculated, hence will not recommend thoracentesis, and will not recommend decortication. It is best to leave the effusion alone as it is for now. Labs were reviewed hemoglobin is 8.3, basic metabolic profile is normal, potassium is down to 11.6. Reevaluated today on 06/22/2017, patient was confused apparently last night, less confused this morning, feeling well, denies any shortness of breath, but he feels generally weak.seen by oncology, MRI of the brain is being considered the patient continues to have confusion episodes.urine cultures are negative so far.calcium is 11.1 today. On 06/23/2017 patient seen in follow-up. Denies any acute distress, well signs are stable, afebrile, he is currently on room air with O2 sat at 97%. Denies any worsening shortness of breath. Today's lab work has been reviewed, the PVCs within normal limits at 8.2, hemoglobin stable at 8.3, sodium is 140, potassium is 4.1, carbon dioxide is 32, BUN is 11, creatinine 0.74. Patient is being treated for acute UTI, blood and urine cultures are no growth. Left pleural effusion is loculated and chronic in nature, no plans for intervention at this time. Discharge planning is in progress for placement to subacute rehab , patient is requesting placement closer to his residence. On 06/24/2017 patient seen in follow-up. Denies any acute respiratory complaints, denies any acute distress. No acute events overnight. Lung sounds are clear diminished at the bases. patient is on 2 L per nasal cannula with O2 sat at 98%. afebrile, vital signs are stable. Remains generally weak, and pulmonary standpoint he is stable for transfer to the [facility] today. No plans to do any intervention for his left loculated pleural effusion. Objective - Vital Signs Vital signs: Vital Signs Temp 96.5 F L 06/24/17 07:00 Pulse 88 06/24/17 08:00 Resp 18 06/24/17 08:00 BP 108/58 06/24/17 07:00 Pulse Ox 98 06/24/17 07:00 Intake & Output 06/23/17 06/24/17 06/24/17 18:59 06:59 18:59 Weight 161.025 kg Other: Voiding Method Toilet Toilet Toilet Urinal Urinal Incontinent Incontinent Incontinent # Voids 2 1 1 - Exam GENERAL EXAM: Alert, 72-year-old white male, pale, weak, but in no apparent distress HEAD: Normocephalic/atraumatic. EYES: Normal reaction of pupils, equal size. Conjunctiva pink, sclera white. NOSE: Clear with pink turbinates. THROAT: No erythema or exudates. NECK: No masses, no JVD, no thyroid enlargement, no adenopathy. CHEST: No chest wall deformity. Symmetrical expansion. LUNGS: Equal air entry with no crackles, wheeze, rhonchi. Lung sounds are diminished, more so on the left CVS: Regular rate and rhythm, normal S1 and S2, no gallops, no murmurs, no rubs ABDOMEN: Soft, nontender. No hepatosplenomegaly, normal bowel sounds, no guarding or rigidity. EXTREMITIES: No clubbing, no edema, no cyanosis, 2+ pulses and upper and lower extremities. MUSCULOSKELETAL: Muscle strength and tone normal. SPINE: No scoliosis or deformity SKIN: No rashes CENTRAL NERVOUS SYSTEM: Alert and oriented -3. No focal deficits, tone is normal in all 4 extremities. PSYCHIATRIC: Alert and oriented -3. Appropriate affect. Intact judgment and insight. - Labs CBC & Chem 7: 06/24/17 06:45 06/24/17 06:45 Labs: Abnormal Lab Results - Last 24 Hours (Table) 06/24/17 06/24/17 Range/Units 06:45 06:45 RBC 3.29 L (4.30-5.90) m/uL Hgb 8.2 L (13.0-17.5) gm/dL Hct 26.7 L (39.0-53.0) % MCHC 30.8 L (31.0-37.0) g/dL RDW 18.2 H (11.5-15.5) % Lymphocytes # 0.8 L (1.0-4.8) k/uL Carbon Dioxide 32 H (22-30) mmol/L Glucose 106 H (74-99) mg/dL Calcium 10.5 H (8.4-10.2) mg/dL AST 11 L (17-59) U/L Total Protein 5.9 L (6.3-8.2) g/dL Albumin 2.7 L (3.5-5.0) g/dL Microbiology - Last 24 Hours (Table) 06/20/17 13:47 Blood Culture - Preliminary Blood No Growth after 72 hours Assessment and Plan Plan: Assessment: #1. Acute sepsis, secondary to acute urinary tract infection. Patient presented with worsening weakness, falls, hematuria. Has been undergoing outpatient treatment for UTI with a course of Bactrim. #2. Lactic acidosis, secondary to the above, responded well to IV fluid resuscitation. Initial lactic acid of 3.6 on admission, subsequently came down to 1.0 after IV fluids #3. Large left pleural effusion, malignant, which was present during previous hospitalizations, loculated. Patient underwent ultrasound-guided thoracentesis on 05/02/2017 with the drainage of only 95 mL of pleural fluid. Had previously refused Pleurx catheter placement, but the loculation of the pleural fluid would not allow successful placement of the Pleurx catheter anyway. Patient is not having any acute oxygenation issues or increased dyspnea related to this effusion. Repeat ultrasound of the chest on 06/20/2017 was ordered #4. Generalized weakness, falls due to acute UTI with sepsis, and multiple comorbidities, including advanced squamous cell carcinoma with metastasis #5. 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 Coronary artery disease, with previous NH, PCI and stenting, coronary artery bypass grafting #7. Chronic anemia of chronic disease #8. Back surgery with fusion and laminectomy #9. History of bariatric surgery Plan: Patient remains stable, vital signs are stable, afebrile, microbiology is negative thus far. Present medical treatment, continue treatment for the UTI. The left pleural effusion is loculated, no plans for placement of Pleurx catheter or thoracentesis at this time. From pulmonary standpoint, stable for discharge to the [facility] today. I performed a history & physical examination of the patient and discussed their management with my nurse practitioner, Carie Perdomo. I reviewed the nurse practitioner's note and agree with the documented findings and plan of care. Lung sounds are diminished, more so on the left. The findings and the impression was discussed with the patient. I attest to the documentation by the nurse practitioner. Time with Patient: Less than 30
[2017-06-24] MEDS ORDERED: LEVOFLOXACIN 500 MG TAB PO SCH (14:00)
[2017-06-24 19:41] LABS: Appearance,Urine Turbid (Clear); Bilirubin,Urine Negative (Negative); Blood,Urine Large (Negative); Color,Urine Dark Red; Glucose,Urine (UA) Negative (Negative); Ketones,Urine Negative (Negative); Leukocyte Esterase,Urine Small (Negative); Nitrite,Urine Negative (Negative); Protein,Urine 2+ (Negative); Urobilinogen,Urine <2.0 mg/dL (<2.0)
[2017-06-24 19:43] LABS: RBC,Urine >182 /hpf (0-5); Specific Gravity,Urine 1.029 (1.001-1.035); WBC,Urine >182 /hpf (0-5)
[2017-06-24] MEDS: POLYETHYLENE GLYCOL 3350 17 GM POWD.PACK PO SCH (20:38)
[2017-06-24] MEDS: AMITRIPTYLINE HCL 25 MG TAB PO SCH (20:39)
[2017-06-24] MEDS: ATORVASTATIN 20 MG TAB PO SCH (20:39)
[2017-06-24] MEDS: metFORMIN 500 MG TAB PO SCH (20:40)
[2017-06-24 23:06] VITALS: RESP 18
[2017-06-25] MEDS: oxyCODONE-APAP 10-325MG 1 EACH TAB PO PRN ×2 (04:59→11:07)
[2017-06-25] MEDS: LEVOTHYROXINE 50 MCG TAB PO SCH (06:07)
[2017-06-25 07:09] LABS: Anisocytosis Slight; Basophils % (A) 0 %; Eosinophils # (A) 0.3 k/uL (0-0.7); Eosinophils % (A) 4 %; HCT 25.5 % (39.0-53.0); HGB 8.1 gm/dL (13.0-17.5); Hypochromasia Moderate; Lymphocytes # (A) 0.8 k/uL (1.0-4.8); Lymphocytes % (A) 9 %; MCH 25.6 pg (25.0-35.0); MCHC 31.5 g/dL (31.0-37.0); MCV 81.1 fL (80.0-100.0); Mean Platelet Volume 8.6; Microcytosis Slight; Monocytes # (A) 0.5 k/uL (0-1.0); Monocytes % (A) 5 %; Neutrophils # (A) 7.1 k/uL (1.3-7.7); Neutrophils % (A) 80 %; Platelet Count 225 k/uL (150-450); RBC 3.15 m/uL (4.30-5.90); RDW 18.2 % (11.5-15.5); WBC 8.9 k/uL (3.8-10.6)
[2017-06-25 07:34] LABS: Albumin 2.7 g/dL (3.5-5.0); Anion Gap 7 mmol/L; Carbon Dioxide 30 mmol/L (22-30); Chloride 100 mmol/L (98-107); Glucose 120 mg/dL (74-99); Potassium 4.3 mmol/L (3.5-5.1); Sodium 137 mmol/L (137-145)
[2017-06-25 07:35] LABS: ALT 22 U/L (21-72); AST 12 U/L (17-59); Alkaline Phosphatase 57 U/L (38-126); Blood Urea Nitrogen 16 mg/dL (9-20); Total Bilirubin 0.3 mg/dL (0.2-1.3)
[2017-06-25 07:47] VITALS: BP 121/54; PULSE 75; TEMP 98.1
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
[2017-06-25] MEDS: CHOLECALCIFEROL 1,000 UNIT TAB PO SCH (08:42)
[2017-06-25] MEDS: MAGNESIUM OXIDE 400 MG TAB PO SCH (08:42)
[2017-06-25] MEDS: ASPIRIN 81 MG PO SCH (08:43)
[2017-06-25] MEDS: CARVEDILOL 3.125 MG TAB PO SCH (08:43)
[2017-06-25] MEDS: ENOXAPARIN 40 MG/0.4 ML SYRINGE SQ SCH (08:43)
[2017-06-25] MEDS: PREGABALIN 50 MG CAP PO SCH (08:47)
--- NOTE | 2017-06-25 11:08 | P.PN ---
Subjective Vernon Crouch is a 72-year-old male, patient of Dr Joanna Hernandez, with a known history of stage IV lung cancer who was brought in by EMS this morning for progressively worsening weakness. He has had 2 falls the last two weeks and this morning was found on the floor by paramedics after family called on the patient became weak after walking back from the bathroom and he became weak and labs helped down to the floor. He also is had some blood in his urine. He was seen by his primary care physician and is being treated for urinary tract infection with a course of Bactrim. Patient was treated for UTI with Levaquin. There is no evidence of sepsis. Urine culture negative. We'll continue 5 more days of Levaquin. Hematuria has resolved. Possibly related to the UTI. Continue to monitor for any reoccurrence. Patient's weakness had improved with antibiotic treatment as well as IV fluids. Likely his confusion and weakness were related to UTI dehydration and his medical comorbidities. Hypercalcemia also contributing. Patient's confusion has improved. Computed tomography scan of the brain showed no acute changes. Hypercalcemia was also treated by oncology with the Zometa. Calcium level improving. Calcium level at discharge 10.5. Pulmonary and oncology services have cleared patient for discharge. He'll be discharged to [facility] for further rehabilitation. Discharge summary was done yesterday however patient was unable to be discharged due to insurance requirements he was seen and examined again on 06/25/2017 there is no significant change since yesterday, hemoglobin is down to 8.1, will add iron supplements M is for discharge to group home today Objective - Vital Signs Vital signs: Vital Signs Temp 98.1 F 06/25/17 07:00 Pulse 75 06/25/17 08:00 Resp 18 06/25/17 08:00 BP 121/54 06/25/17 07:00 Pulse Ox 97 06/25/17 07:00 Intake & Output 06/24/17 06/25/17 06/25/17 18:59 06:59 18:59 Intake Total 240 240 Output Total 850 Balance -610 240 Weight 161.025 kg 161.025 kg Intake: Oral 240 240 Output: Urine 850 Other: Voiding Method Toilet Toilet Toilet Incontinent Incontinent Incontinent # Voids 1 1 - Exam In general patient is alert responsive in no apparent distress HEENT head normocephalic and atraumatic Neck is supple no JVD no goiter no lymphadenopathy Chest exam reveals a few scattered crackles in both bases no wheezing, absent respiratory sounds on the left Cardiac exam reveals regular heart sounds S1 and S2 no gallops no murmurs Abdomen is soft nontender no organomegaly was normal bowel sounds Extremity exam reveals minimal edema no cyanosis or clubbing Neurological examination reveals no gross focal deficit - Labs CBC & Chem 7: 06/25/17 06:53 06/25/17 06:53 Labs: Abnormal Lab Results - Last 24 Hours (Table) 06/24/17 06/25/17 06/25/17 Range/Units 19:26 06:53 06:53 RBC 3.15 L (4.30-5.90) m/uL Hgb 8.1 L (13.0-17.5) gm/dL Hct 25.5 L (39.0-53.0) % RDW 18.2 H (11.5-15.5) % Lymphocytes # 0.8 L (1.0-4.8) k/uL Glucose 120 H (74-99) mg/dL AST 12 L (17-59) U/L Total Protein 6.0 L (6.3-8.2) g/dL Albumin 2.7 L (3.5-5.0) g/dL Urine Protein 2+ H (Negative) Urine Blood Large H (Negative) Ur Leukocyte Esterase Small H (Negative) Urine RBC >182 H (0-5) /hpf Urine WBC >182 H (0-5) /hpf Microbiology - Last 24 Hours (Table) 06/24/17 21:00 Urine Culture - Preliminary Urine,Clean Catch 06/20/17 13:47 Blood Culture - Preliminary Blood No Growth after 96 hours Assessment and Plan Plan: 1. Severe generalized weakness and multiple falls likely related to patient's UTI and medical comorbidities 2. Altered mental status changes possibly a metabolic encephalopathy related to UTI, dehydration and hypercalcemia. Patient's symptoms appear to be improving he is now alert and orientated to 3. Computed tomography scan of the brain showed no acute changes 3. Lactic acidosis improved with IV fluids 4. Large Left pleural effusion, malignant, which was present during previous hospitalizations, loculated. Patient seen by pulmonary service. No plans for thoracentesis or Pleurx catheter. Risk outweighs the benefit of intervention per pulmonary service 5. Stage IV's, cell carcinoma of the lungs. Status post chemotherapy. Followed by oncology 6. Anemia of chronic disease, hemoglobin down to 8.1 Will add iron supplements 7. Coronary artery disease with previous OK and cardiac stenting and coronary artery bypass grafting 8. Hypercalcemia of malignancy: Calcium level trending down to 10.9. Oncology following. Patient did receive Zometa 9. UTI on Levaquin. Urine culture negative. Continue Levaquin for 5 more days 10. Hematuria patient was evaluated by Dr. Kerns and will have a cystoscopy as outpatient if his other comorbidities are stable
== END 2017-06-25 14:40 | DRG 689 ==
LOC: EC 06:20 → 5MS5E 08:53
PROVIDERS: ADMIT Internal Medicine; ATTEND Internal Medicine
DX: N39.0 Urinary tract infection, site not specified (principal); G93.41 Metabolic encephalopathy; J91.0 Malignant pleural effusion; E11.40 Type 2 diabetes mellitus with diabetic neuropathy, unspecified; E87.2 Acidosis; C34.32 Malignant neoplasm of lower lobe, left bronchus or lung; D63.8 Anemia in other chronic diseases classified elsewhere; E83.42 Hypomagnesemia; J98.11 Atelectasis; E83.52 Hypercalcemia; R32 Unspecified urinary incontinence; E03.9 Hypothyroidism, unspecified; E86.0 Dehydration; R31.0 Gross hematuria; G89.29 Other chronic pain; F41.9 Anxiety disorder, unspecified; I25.10 Atherosclerotic heart disease of native coronary artery without angina pectoris; I25.2 Old myocardial infarction; R29.6 Repeated falls; R19.7 Diarrhea, unspecified; E78.5 Hyperlipidemia, unspecified; Z79.82 Long term (current) use of aspirin; Z79.84 Long term (current) use of oral hypoglycemic drugs; Z79.899 Other long term (current) drug therapy; Z88.0 Allergy status to penicillin; Z98.84 Bariatric surgery status; Z95.5 Presence of coronary angioplasty implant and graft; Z95.1 Presence of aortocoronary bypass graft; Z92.3 Personal history of irradiation; Z92.21 Personal history of antineoplastic chemotherapy; Z87.891 Personal history of nicotine dependence; Z90.49 Acquired absence of other specified parts of digestive tract; Z82.49 Family history of ischemic heart disease and other diseases of the circulatory system
CPT/HCPCS: 36415; 70450; 71046; 76604; 80048; 80053; 81001; 82550; 82553; 83605; 83735; 83880; 84484; 85025; 85610; 85730; 87040; 87086; 93005; 96360; 96361; 99285